=== PATIENT | female | born 1990 | race Caucasian/White ===

== ENCOUNTER 2019-07-19 20:54 | Emergency (ER) | payer SELFPAY ==
[~2019-07-19] VITALS: Ht 162.6 cm; Wt 104.3 kg
[2019-07-19 21:08] VITALS: BP 153/99
--- NOTE | 2019-07-19 22:19 | PHYS DOC ---
Past Medical History Past Medical History: Hypertension Past Surgical History: Other Additional Past Surgical Histo: cervical ca,tonsils Alcohol Use: None Drug Use: Marijuana, Methamphetamine Adult General Chief Complaint Chief Complaint: INSECT BITE HPI HPI Patient is a 29 year old female who presents with 2 abscesses to her left buttocks. There was one to the medial but THAT is very large and the size of the whole buttock. There is a scabbed over wound to the medial buttock with associated cellulitis. Review of Systems Review of Systems Integument: Two abscesses to left buttock. Denies rash or skin lesions [] All other systems were reviewed and found to be within normal limits, except as documented in this note. Allergies Allergies Allergies Coded Allergies Type Severity Reaction Last Updated Verified morphine Allergy Unknown "made me freak out" 07/19/19 Yes Physical Exam Physical Exam Constitutional: Well developed, well nourished, no acute distress, non-toxic appearance. [] Skin: 2 abscesses to Left buttock. Warm, dry, Left buttock erythema, no rash. [] Neurologic: Alert and oriented X 3, normal motor function, normal sensory function, no focal deficits noted. [] Psychologic: Affect normal, judgement normal, mood normal. [] Current Patient Data Vital Signs Vital Signs Date Time Temp Pulse Resp B/P (MAP) Pulse Ox O2 Delivery O2 Flow Rate FiO2 07/19/19 21:08 97.9 99 20 153/99 (117) 100 Room Air 97.9 EKG EKG [] Radiology/Procedures Radiology/Procedures [] Course & Med Decision Making Course & Med Decision Making There was one to the medial but that is very large and the size of the whole buttock. There is a scabbed over wound to the medial buttock with associated c ellulitis. The center is nonfluctuant. The second abscess is to the lateral buttock just below the hip that is baseball sized with associated cellulitis. The care of the wound has a scabbed over opening with no drainage at this time. The center is not fluctuant area. The skin is hot. She states that she thinks she was bitten by insect. She is told that she needs to stay for IV antibiotics and blood work. Patient is refusing and states that she is adult and can make her own decision. Patient is educated that she can become very ill including a infection and to the blood. Patient states she understands this but she is not staying to be admitted and that she is going to leave. Patient agrees to sign out AMA. Viviana Disclaimer Viviana Disclaimer This electronic medical record was generated, in whole or in part, using a voice recognition dictation system. Departure Departure Impression: Primary Impression: Abscess Disposition: 07 AGAINST MEDICAL ADVICE Condition: STABLE Referrals: NO PCP (PCP) CAIO MILLAN APRN Jul 19, 2019 22:19
== END 2019-07-19 22:30 | disposition left against medical advice (07) ==
LOC: ER 20:54
DX: L02.31 Cutaneous abscess of buttock (principal); L03.317 Cellulitis of buttock; I10 Essential (primary) hypertension; Z88.5 Allergy status to narcotic agent
CPT/HCPCS: 99281

== ENCOUNTER 2019-07-20 00:06 | Inpatient (IN) | payer SELFPAY ==
[~2019-07-20] VITALS: Ht 165.1 cm; Wt 96.2 kg
[2019-07-20] VITALS (7 sets, daily range): BP systolic 116–175; BP diastolic 60–106
[2019-07-20] MEDS ORDERED: IV NORMAL SALINE 1000ML BAG 1,000 ML IV ONE (00:30)
--- NOTE | 2019-07-20 00:34 | PHYS DOC ---
Past Medical History Past Medical History: Hypertension Past Surgical History: Other Additional Past Surgical Histo: cervical ca,tonsils Alcohol Use: None Drug Use: Marijuana, Methamphetamine Adult General Chief Complaint Chief Complaint: ABSCESS HPI HPI Patient is a 29 year old female who presents with 2 abscesses to Left buttock x 2 days. Review of Systems Review of Systems Integument: Abscess to Left buttock. Denies rash or skin lesions [] All other systems were reviewed and found to be within normal limits, except as documented in this note. Current Medications Current Medications Current Medications Medications (Trade) Dose Ordered Sig/Debbie Start Time Stop Time Status Last Admin Dose Admin Fentanyl Citrate (Fentanyl 2ml Vial) 50 mcg 1X ONCE 07/20/19 00:45 07/20/19 00:46 DC 07/20/19 00:53 50 MCG Sodium Chloride 1,000 ml @ 1,000 mls/hr 1X ONCE 07/20/19 00:30 07/20/19 01:29 07/20/19 00:51 1,000 MLS/HR Vancomycin HCl (Vanco Per Pharmacy) 1 each PRN DAILY PRN 07/20/19 00:30 UNV Vancomycin HCl 2 gm/Sodium Chloride 500 ml @ 250 mls/hr 1X ONCE 07/20/19 01:00 07/20/19 02:59 Allergies Allergies Allergies Coded Allergies Type Severity Reaction Last Updated Verified morphine Allergy Unknown "made me freak out" 07/19/19 Yes Physical Exam Physical Exam Constitutional: Well developed, well nourished, no acute distress, non-toxic appearance. [] Skin: 2 abscesses to Left buttock. Warm, dry, no erythema, no rash. [] Neurologic: Alert and oriented X 3, normal motor function, normal sensory function, no focal deficits noted. [] Psychologic: Affect normal, judgement normal, mood normal. [] Current Patient Data Vital Signs Vital Signs Date Time Temp Pulse Resp B/P (MAP) Pulse Ox O2 Delivery O2 Flow Rate FiO2 07/20/19 00:53 18 99 07/20/19 00:15 97.6 109 172/124 (140) Room Air 97.6 Lab Values Laboratory Tests Test 07/20/19 00:30 White Blood Count 13.2 x10^3/uL (4.0-11.0) H Red Blood Count 4.64 x10^6/uL (3.50-5.40) Hemoglobin 14.1 g/dL (12.0-15.5) Hematocrit 41.8 % (36.0-47.0) Mean Corpuscular Volume 90 fL (79-100) Mean Corpuscular Hemoglobin 31 pg (25-35) Mean Corpuscular Hemoglobin Concent 34 g/dL (31-37) Red Cell Distribution Width 12.8 % (11.5-14.5) Platelet Count 247 x10^3/uL (140-400) Neutrophils (%) (Auto) 73 % (31-73) Lymphocytes (%) (Auto) 18 % (24-48) L Monocytes (%) (Auto) 7 % (0-9) Eosinophils (%) (Auto) 1 % (0-3) Basophils (%) (Auto) 0 % (0-3) Neutrophils # (Auto) 9.7 x10^3/uL (1.8-7.7) H Lymphocytes # (Auto) 2.4 x10^3/uL (1.0-4.8) Monocytes # (Auto) 0.9 x10^3/uL (0.0-1.1) Eosinophils # (Auto) 0.2 x10^3/uL (0.0-0.7) Basophils # (Auto) 0.0 x10^3/uL (0.0-0.2) Laboratory Tests 07/20/19 00:30 EKG EKG [] Radiology/Procedures Radiology/Procedures [] Course & Med Decision Making Course & Med Decision Making There is one to the medial but that is very large and the size of the whole buttock. There is a scabbed over wound to the medial buttock with associated cellulitis. The center is nonfluctuant. The second abscess is to the lateral buttock just below the hip that is baseball sized with associated cellulitis. The care of the wound has a scabbed over opening with no drainage at this time. The center is not fluctuant area. The skin is hot. She states that she thinks she was bitten by insect. Patient admitted to Dr Sue. Viviana Disclaimer Viviana Disclaimer This electronic medical record was generated, in whole or in part, using a voice recognition dictation system. Departure Departure Impression: Primary Impression: Abscess Additional Impression: Cellulitis Disposition: ADMITTED INPATIENT Admitting Physician: BAYLEE Condition: STABLE Referrals: NO PCP (PCP) Problem Qualifiers Additional Impression: Cellulitis Site of cellulitis: buttock Qualified Codes: L03.317 - Cellulitis of bu [facility] CAIO MILLAN APRN Jul 20, 2019 00:34
[2019-07-20] MEDS ORDERED: fentaNYL PF VIAL 100 MCG/2 ML VIAL IVP ONE (00:45)
[2019-07-20 00:51] LABS: BASO % 0 % (0-3); EOS # 0.2 x10^3/uL (0.0-0.7); EOS % 1 % (0-3); HEMATOCRIT 41.8 % (36.0-47.0); HEMOGLOBIN 14.1 g/dL (12.0-15.5); LYMPH # 2.4 x10^3/uL (1.0-4.8); LYMPH % 18 % (24-48); MEAN CORPUSCULAR HEMOGLOBIN 31 pg (25-35); MEAN CORPUSCULAR HGB CONC 34 g/dL (31-37); MEAN CORPUSCULAR VOLUME 90 fL (79-100); MONO # 0.9 x10^3/uL (0.0-1.1); MONO % 7 % (0-9); NEUT # 9.7 x10^3/uL (1.8-7.7); NEUT % 73 % (31-73); PLATELET COUNT 247 x10^3/uL (140-400); RED BLOOD COUNT 4.64 x10^6/uL (3.50-5.40); RED CELL DISTRIBUTION WIDTH 12.8 % (11.5-14.5); WHITE BLOOD COUNT 13.2 x10^3/uL (4.0-11.0)
[2019-07-20] MEDS ORDERED: VANCOMYCIN 2 GM in IV NORMAL SALINE 500ML BAG 500 ML IV ONE (01:00)
[2019-07-20] MEDS ORDERED: ACETAMINOPHEN 325 MG TABLET. PO PRN (01:15)
[2019-07-20] MEDS ORDERED: ONDANSETRON PF 4 MG/2 ML VIAL. IV PRN (01:15)
[2019-07-20 01:44] LABS: CALCIUM 9.1 mg/dL (8.5-10.1); GFR 65.6; POTASSIUM 3.4 mmol/L (3.5-5.1)
[2019-07-20 01:50] LABS: ALBUMIN 3.4 g/dL (3.4-5.0); ALBUMIN/GLOBULIN RATIO 0.9 (1.0-1.7); TOTAL BILIRUBIN 0.5 mg/dL (0.2-1.0); TOTAL PROTEIN 7.2 g/dL (6.4-8.2)
[2019-07-20] MEDS: VANCOMYCIN PER PHARMACY MC PRN (02:35)
--- NOTE | 2019-07-20 02:39 | NUR ---
Pharmacy Vancomycin Dosing Note S:Consulted to monitor and dose vancomycin started 07/20/19. O:LATRELL HERNANDEZ is a 29 year old F with Abscess Cellulitis . Height: 5 feet, 5 inches Weight: 104.262800 kg [place] Body Weight: 57.00 Adjusted Body Weight: 75.80 Dosing Weight: Actual Other Antibiotics: LABS: Last BUN: 10 Last Creatinine: 1.0 Creatinine Clearance: 99 mL/min Last WBC: 13.2 Last Procalcitonin: Tmax (past 24 hours): Microbiology: I/O: Drug Levels: Last level: on at Last dose given at Vancomycin Dosing: Loading Dose: 2000 mg x1 07/20/19 0112 Dosing Weight: Actual Target Trough: 10-20 A: Based on: Actual Wt and CrCl P: 1. 07/20/19 1330 Vancomycin 1500 mg IV q12h 2. Follow up Trough level on 07/21/19 at 1300 3. Pharmacy will continue to monitor, follow and adjust therapy as needed. AFSHIN SALMON RPH, 07/20/19 0239 Signed: 07/20/19 at 0240 by AFSHIN SALMON RPH PHA
[2019-07-20] MEDS: fentaNYL PF VIAL 100 MCG/2 ML VIAL IV PRN ×6 (02:45→22:33)
--- NOTE | 2019-07-20 04:05 | NUR ---
Pt arrived to unit at 0205 per wheel chair assessment completed vs obtained and bp elevated. Poc explained. Pt significant other at bedside will resume care. Call placed to Dr reece re positive sepsis screen and elevated bp. will resume care and continue to monitor pt.
[2019-07-20] MEDS ORDERED: hydrOXYzine 25 MG TABLET PO PRN (04:15)
[2019-07-20] MEDS: ATENOLOL 25 MG TABLET. PO SCH ×2 (07:58→21:00)
[2019-07-20] MEDS ORDERED: IOHEXOL 300 MG/ML 100ML VIAL. IV ONE (08:15)
[2019-07-20] MEDS ORDERED: CONTRAST GIVEN. MC PRN (08:15)
[2019-07-20 08:27] LABS: BARBITURATES NEG (NEG); BENZODIAZEPINES NEG (NEG); CANNABINOIDS POS (NEG); COCAINE NEG (NEG); METHADONE NEG (NEG); OPIATES NEG (NEG); PHENCYCLIDINE NEG (NEG)
[2019-07-20 08:29] LABS: AMPHETAMINE/METHAMPHETAMINE POS (NEG)
--- NOTE | 2019-07-20 09:14 | PDOC ---
Provider Note Provider Note [id number] Pt seen and examined ID consult dictated Thank you WILFREDO SUAREZ MD Jul 20, 2019 09:14
[2019-07-20 09:20] LABS: U PREG PATIENT NEGATIVE (NEG)
--- NOTE | 2019-07-20 09:39 | CONS ---
DATE OF CONSULTATION: REFERRING PHYSICIAN: Dr. Sue. REASON FOR CONSULTATION: Left buttock cellulitis/abscess. HISTORY OF PRESENT ILLNESS: A 29-year-old female presented to the ER on 07/19/2019 with abscess over the left buttock, which came couple of days prior to admission. The patient has history of drug use. She denies any fevers. White count was around 13.2, T-max was 99.2. She received a dose of vancomycin. A urine test is pending. The patient denies any history of skin and soft tissue infections in the past. She has history of polysubstance use. UDS was positive for amphetamine, cannabinoids. The patient quit using drugs just a couple of days ago. CT of the pelvis is pending at this time. ID consult has been requested for antibiotic management. This morning, she continues to have pain, swelling, redness at the site on the buttock. REVIEW OF SYSTEMS: Negative except for above. CURRENT MEDICATION: IV vancomycin, fentanyl. ALLERGIES: MORPHINE. SOCIAL HISTORY: Positive for smoking, ETOH, and drug use. Partner at bedside. PHYSICAL EXAMINATION: VITAL SIGNS: Temperature 97.6, pulse 109, respiratory rate 18, blood pressure 172/124, oxygen saturation 99% on room air. GENERAL: Alert, oriented, well-nourished, well-developed female, nontoxic appearing, in no acute distress. HEENT: Nonicteric. No oral lesions. NECK: Supple. LUNGS: Clear bilaterally. HEART: S1, S2. ABDOMEN: Soft, obese. Bowel sounds present, nontender, nondistended. EXTREMITIES: Left buttock cellulitis, 2 lesions with one near the anal area, early developing abscess, tender, has multiple excoriation all over the lower extremity. MUSCULOSKELETAL: No joint effusion, no decrease in range of motion. DERMATOLOGIC: Warm and dry. Multiple superficial abrasions all over the face, upper extremity and lower extremity and as above. NEUROLOGIC: Alert and oriented x 3, grossly nonfocal. PSYCHIATRIC: Cooperative, appropriate mood and affect. LABORATORY DATA: WBC 13.0, hemoglobin 14.1, hematocrit 41.8, platelets 247. UDS is positive for methamphetamine, amphetamine and cannabinoids. Sodium 142, potassium 3.4, chloride 107, bicarbonate 26, BUN 10, creatinine 1.0, glucose 116. Lactate 0.8, calcium 9.1, total bilirubin 0.5, ALT 83, AST 30, alkaline phosphatase 84, albumin 3.4. IMAGING: None at this time. CT pelvis is pending at this time. IMPRESSION: 1. Left buttock abscess with cellulitis. 2. History of polysubstance use. 3. Leukocytosis. RECOMMENDATIONS: 1. Continue IV vancomycin. 2. Monitor renal functions closely. 3. Consult General Surgery for possible I and D. 4. Follow up blood cultures. 5. Follow up urine test. 6. Follow up CT pelvis. 7. Continue local care. 8. Follow up labs and cultures. 9. Continue supportive care. 10. We will obtain HIV, hepatitis profile and RPR for completeness sake, patient gave verbal consent. 11. Discussed with RN. Thank you, Dr. Sue for consulting Infectious Disease to participate in this patient's care. We will follow along with you. WILFREDO SUAREZ MD DR: KIMMIE/nts JOB#: [id number] / [id number]
--- NOTE | 2019-07-20 10:05 | PDOC1 ---
History and Physical Date of Admission Date of Admission DATE: 07/20/19 TIME: 10:01 Source Source: Chart review, Patient History of Present Illness History of Present Illness Ms. Dean, is a 29-year-old female admit after days of buttock pain, she has now acute pain to her left buttock. she has recent meth and THC use low grade fever 99, w /leukocytosis, pain she is sleeping hard 10am, probably normal for her schedule and sobering up still Past Medical History Cardiovascular: No pertinent hx Pulmonary: No pertinent hx GI: No pertinent hx Musculoskeletal: low back pain Social History ALCOHOL: rare Drugs: Marijuana, Crystal meth Current Problem List Problem List Problems Medical Problems: (1) Abscess Status: Acute (2) Cellulitis Status: Acute Current Medications Current Medications Current Medications Sodium Chloride 1,000 ml @ 1,000 mls/hr 1X ONCE IV Last administered on 07/20/19at 00:51; Start 07/20/19 at 00:30; Stop 07/20/19 at 01:29; Status DC Fentanyl Citrate (Fentanyl 2ml Vial) 50 mcg 1X ONCE IVP Last administered on 07/20/19at 00:53; Start 07/20/19 at 00:45; Stop 07/20/19 at 00:46; Status DC Vancomycin HCl (Vanco Per Pharmacy) 1 each PRN DAILY PRN MC SEE COMMENTS Last administered on 07/20/19at 02:35; Start 07/20/19 at 00:30 Vancomycin HCl 2 gm/Sodium Chloride 500 ml @ 250 mls/hr 1X ONCE IV Last administered on 07/20/19at 01:12; Start 07/20/19 at 01:00; Stop 07/20/19 at 02:59; Status DC Ondansetron HCl (Zofran) 4 mg PRN Q8HRS PRN IV NAUSEA/VOMITING Last administered on 07/20/19at 02:44; Start 07/20/19 at 01:15; Stop 07/21/19 at 01:14 Fentanyl Citrate (Fentanyl 2ml Vial) 50 mcg PRN Q1HR PRN IV PAIN Last administered on 07/20/19at 07:58; Start 07/20/19 at 01:15; Stop 07/21/19 at 01:14 Acetaminophen (Tylenol) 650 mg PRN Q4HRS PRN PO FEVER; Start 07/20/19 at 01:15; Stop 07/21/19 at 01:14 Vancomycin HCl 1.5 gm/Sodium Chloride 500 ml @ 250 mls/hr Q12H IV ; Start 07/20/19 at 13:30 Vancomycin HCl (Vancomycin Trough Level) 1 each 1X ONCE MC ; Start 07/21/19 at 13:00; Stop 07/21/19 at 13:01 Atenolol (Tenormin) 25 mg BID PO Last administered on 07/20/19at 07:58; Start 07/20/19 at 09:00 Hydroxyzine HCl (Atarax) 25 mg PRN Q6HRS PRN PO ITCHING Last administered on 07/20/19at 04:26; Start 07/20/19 at 04:15 Iohexol (Omnipaque 300 Mg/ml) 75 ml 1X ONCE IV ; Start 07/20/19 at 08:15; Stop 07/20/19 at 08:16; Status DC Info (CONTRAST GIVEN -- Rx MONITORING) 1 each PRN DAILY PRN MC SEE COMMENTS; Start 07/20/19 at 08:15; Stop 07/22/19 at 08:14 Lactobacillus Rhamnosus (Culturelle) 1 cap BID PO ; Start 07/20/19 at 21:00 Active Scripts Active Reported No Known Medications Prior To Admisstion (Info) Each 1 Each MC Allergies Allergies: Coded Allergies: morphine (Verified Adverse Reaction, Unknown, "made me freak out", 07/20/19) ROS General: YES: Fatigue, Malaise; No: Chills, Night Sweats, Appetite, Other Eyes: No Blurry vision, No Decreased vision, No Double vision, No Dry eyes, No Excessive tearing, No Eye Pain, No Itchy Eyes, No Loss of vision, No Photophobia, No Scotomata, No Uses contacts, No Uses glasses, No Other Gastrointestinal: Yes Nausea Musculoskeletal: Yes Joint Stiffness Neurological: Yes Gait Disturbance Skin: Yes Dry Skin, Yes Rash, Yes Skin Lesion Changes Physical Exam General: Alert, Oriented X3, mild distress HEENT: Atraumatic, Mucous membr. moist/pink Lungs: Clear to auscultation, Normal air movement Heart: S1S2, no gallops Extremities: No cyanosis, No edema Neuro: Sensation intact, Cranial nerves 3-12 NL Psych/Mental Status: Mood NL Vitals Vitals Vital Signs Date Time Temp Pulse Resp B/P (MAP) Pulse Ox O2 Delivery O2 Flow Rate FiO2 07/20/19 07:58 107 117/60 07/20/19 07:58 Room Air 07/20/19 07:00 99.5 21 96 99.5 Labs Labs Laboratory Tests Test 07/20/19 00:30 07/20/19 08:05 White Blood Count 13.2 x10^3/uL (4.0-11.0) Red Blood Count 4.64 x10^6/uL (3.50-5.40) Hemoglobin 14.1 g/dL (12.0-15.5) Hematocrit 41.8 % (36.0-47.0) Mean Corpuscular Volume 90 fL (79-100) Mean Corpuscular Hemoglobin 31 pg (25-35) Mean Corpuscular Hemoglobin Concent 34 g/dL (31-37) Red Cell Distribution Width 12.8 % (11.5-14.5) Platelet Count 247 x10^3/uL (140-400) Neutrophils (%) (Auto) 73 % (31-73) Lymphocytes (%) (Auto) 18 % (24-48) Monocytes (%) (Auto) 7 % (0-9) Eosinophils (%) (Auto) 1 % (0-3) Basophils (%) (Auto) 0 % (0-3) Neutrophils # (Auto) 9.7 x10^3/uL (1.8-7.7) Lymphocytes # (Auto) 2.4 x10^3/uL (1.0-4.8) Monocytes # (Auto) 0.9 x10^3/uL (0.0-1.1) Eosinophils # (Auto) 0.2 x10^3/uL (0.0-0.7) Basophils # (Auto) 0.0 x10^3/uL (0.0-0.2) Sodium Level 142 mmol/L (136-145) Potassium Level 3.4 mmol/L (3.5-5.1) Chloride Level 107 mmol/L (98-107) Carbon Dioxide Level 26 mmol/L (21-32) Anion Gap 9 (6-14) Blood Urea Nitrogen 10 mg/dL (7-20) Creatinine 1.0 mg/dL (0.6-1.0) Estimated GFR (Cockcroft-Gault) 65.6 BUN/Creatinine Ratio 10 (6-20) Glucose Level 116 mg/dL (70-99) Lactic Acid Level 0.8 mmol/L (0.4-2.0) Calcium Level 9.1 mg/dL (8.5-10.1) Total Bilirubin 0.5 mg/dL (0.2-1.0) Aspartate Amino Transf (AST/SGOT) 30 U/L (15-37) Alanine Aminotransferase (ALT/SGPT) 83 U/L (14-59) Alkaline Phosphatase 84 U/L (46-116) Total Protein 7.2 g/dL (6.4-8.2) Albumin 3.4 g/dL (3.4-5.0) Albumin/Globulin Ratio 0.9 (1.0-1.7) Urine Test Negative (NEG) Urine Opiates Screen Neg (NEG) Urine Methadone Screen Neg (NEG) Urine Barbiturates Neg (NEG) Urine Phencyclidine Screen Neg (NEG) Urine Amphetamine/Methamphetamine Pos (NEG) Urine Benzodiazepines Screen Neg (NEG) Urine Cocaine Screen Neg (NEG) Urine Cannabinoids Screen Pos (NEG) Urine Ethyl Alcohol Neg (NEG) Laboratory Tests Test 07/20/19 00:30 07/20/19 08:05 White Blood Count 13.2 x10^3/uL (4.0-11.0) Red Blood Count 4.64 x10^6/uL (3.50-5.40) Hemoglobin 14.1 g/dL (12.0-15.5) Hematocrit 41.8 % (36.0-47.0) Mean Corpuscular Volume 90 fL (79-100) Mean Corpuscular Hemoglobin 31 pg (25-35) Mean Corpuscular Hemoglobin Concent 34 g/dL (31-37) Red Cell Distribution Width 12.8 % (11.5-14.5) Platelet Count 247 x10^3/uL (140-400) Neutrophils (%) (Auto) 73 % (31-73) Lymphocytes (%) (Auto) 18 % (24-48) Monocytes (%) (Auto) 7 % (0-9) Eosinophils (%) (Auto) 1 % (0-3) Basophils (%) (Auto) 0 % (0-3) Neutrophils # (Auto) 9.7 x10^3/uL (1.8-7.7) Lymphocytes # (Auto) 2.4 x10^3/uL (1.0-4.8) Monocytes # (Auto) 0.9 x10^3/uL (0.0-1.1) Eosinophils # (Auto) 0.2 x10^3/uL (0.0-0.7) Basophils # (Auto) 0.0 x10^3/uL (0.0-0.2) Sodium Level 142 mmol/L (136-145) Potassium Level 3.4 mmol/L (3.5-5.1) Chloride Level 107 mmol/L (98-107) Carbon Dioxide Level 26 mmol/L (21-32) Anion Gap 9 (6-14) Blood Urea Nitrogen 10 mg/dL (7-20) Creatinine 1.0 mg/dL (0.6-1.0) Estimated GFR (Cockcroft-Gault) 65.6 BUN/Creatinine Ratio 10 (6-20) Glucose Level 116 mg/dL (70-99) Lactic Acid Level 0.8 mmol/L (0.4-2.0) Calcium Level 9.1 mg/dL (8.5-10.1) Total Bilirubin 0.5 mg/dL (0.2-1.0) Aspartate Amino Transf (AST/SGOT) 30 U/L (15-37) Alanine Aminotransferase (ALT/SGPT) 83 U/L (14-59) Alkaline Phosphatase 84 U/L (46-116) Total Protein 7.2 g/dL (6.4-8.2) Albumin 3.4 g/dL (3.4-5.0) Albumin/Globulin Ratio 0.9 (1.0-1.7) Urine Test Negative (NEG) Urine Opiates Screen Neg (NEG) Urine Methadone Screen Neg (NEG) Urine Barbiturates Neg (NEG) Urine Phencyclidine Screen Neg (NEG) Urine Amphetamine/Methamphetamine Pos (NEG) Urine Benzodiazepines Screen Neg (NEG) Urine Cocaine Screen Neg (NEG) Urine Cannabinoids Screen Pos (NEG) Urine Ethyl Alcohol Neg (NEG) VTE Prophylaxis Ordered VTE Prophylaxis Devices: Yes VTE Pharmacological Prophylaxi: No (may need I+D) Assessment/Plan Assessment/Plan cellulitis buttock wound with cellulits possible abcess, check CT scan, if fluid seen, will consult gen surg substance abuse, BMI 41, obese MAURY GLEASON MD Jul 20, 2019 10:05
--- NOTE | 2019-07-20 10:52 | RAD ---
CT pelvis with contrast HISTORY: Abscess to buttocks Axial helical images of pelvis were obtained after the administration of 75 cc of IV Omni 300 contrast. FINDINGS: There is hyperattenuation within the subcutaneous fat of the left buttocks. There is no air or fluid accumulation. There is no free fluid in the pelvis. The uterus and ovaries appear within normal limits. The appendix is normal. IMPRESSION: Edema within the subcutaneous fat over the left buttocks. Cellulitis is possible. No abscess. Electronically signed by: Jack Novoa III, MD (07/20/2019 10:49 AM) [facility]
[2019-07-20] MEDS ORDERED: POTASSIUM CHLORIDE 20 MEQ TABLET.ER. PO ONE (12:45)
[2019-07-20] MEDS: KETOROLAC 15 MG/ML VIAL. IVP PRN (12:51)
[2019-07-20] MEDS: oxyCODONE/APAP 5/325 1 TAB TABLET PO PRN ×2 (12:51→21:00)
[2019-07-20] MEDS: VANCOMYCIN 1.5 GM in IV NORMAL SALINE 500ML BAG 500 ML IV SCH ×2 (16:30→17:04)
[2019-07-20] MEDS: LACTOBACILLUS RHAMNOSUS GG 1 CAPSULE. PO SCH (21:00)
[2019-07-21] MEDS: oxyCODONE/APAP 5/325 1 TAB TABLET PO PRN ×5 (02:44→22:25)
[2019-07-21 03:01] VITALS: BP 109/65
[2019-07-21 07:00] VITALS: BP 113/73
[2019-07-21] MEDS ORDERED: ONDANSETRON PF 4 MG/2 ML VIAL. IVP PRN (08:15)
[2019-07-21] MEDS: LACTOBACILLUS RHAMNOSUS GG 1 CAPSULE. PO SCH ×2 (09:11→21:10)
[2019-07-21] MEDS: ATENOLOL 25 MG TABLET. PO SCH ×2 (09:11→21:13)
[2019-07-21] MEDS: KETOROLAC 15 MG/ML VIAL. IVP PRN ×2 (09:54→16:00)
--- NOTE | 2019-07-21 09:57 | PDOC ---
PROGRESS NOTES Chief Complaint Chief Complaint LEft gluteal abscess with cellulitis NON DM RECreational drug use but denies IVDU Obesity BMI 35.7 History of Present Illness History of Present Illness There is abscess to that LEFT butt cheek K 3,4 WBC 15, no fevers, on vanc with ID on board pelvic ct: IMPRESSION: Edema within the subcutaneous fat over the left buttocks. Cellulitis is possible. No abscess. PLANL: SHe needs a surgical consult Replace K Check labs Intra op/I and d cxs when that happens Vitals Vitals Vital Signs Date Time Temp Pulse Resp B/P (MAP) Pulse Ox O2 Delivery O2 Flow Rate FiO2 07/21/19 09:11 83 113/73 07/21/19 09:06 95 Room Air 07/21/19 07:00 98.3 18 98.3 Physical Exam General: Alert, Oriented X3, No acute distress Heart: Regular rate, Normal S1, Normal S2, No murmurs Lungs: Clear Abdomen: Soft, No tenderness Extremities: No clubbing, No cyanosis, No edema Skin: Other (LEft buttock cheek abscess with cellulitis surrounding) Review of Systems Review of Systems left buttock cheek pain, all else 14 pt neg Assessment and Plan Assessmemt and Plan Problems Medical Problems: (1) Abscess Status: Acute (2) Cellulitis Status: Acute Comment Review of Relevant I have reviewed the following items franci (where applicable) has been applied. Labs Laboratory Tests Test 07/20/19 00:30 07/20/19 08:05 White Blood Count 13.2 x10^3/uL (4.0-11.0) Red Blood Count 4.64 x10^6/uL (3.50-5.40) Hemoglobin 14.1 g/dL (12.0-15.5) Hematocrit 41.8 % (36.0-47.0) Mean Corpuscular Volume 90 fL (79-100) Mean Corpuscular Hemoglobin 31 pg (25-35) Mean Corpuscular Hemoglobin Concent 34 g/dL (31-37) Red Cell Distribution Width 12.8 % (11.5-14.5) Platelet Count 247 x10^3/uL (140-400) Neutrophils (%) (Auto) 73 % (31-73) Lymphocytes (%) (Auto) 18 % (24-48) Monocytes (%) (Auto) 7 % (0-9) Eosinophils (%) (Auto) 1 % (0-3) Basophils (%) (Auto) 0 % (0-3) Neutrophils # (Auto) 9.7 x10^3/uL (1.8-7.7) Lymphocytes # (Auto) 2.4 x10^3/uL (1.0-4.8) Monocytes # (Auto) 0.9 x10^3/uL (0.0-1.1) Eosinophils # (Auto) 0.2 x10^3/uL (0.0-0.7) Basophils # (Auto) 0.0 x10^3/uL (0.0-0.2) Sodium Level 142 mmol/L (136-145) Potassium Level 3.4 mmol/L (3.5-5.1) Chloride Level 107 mmol/L (98-107) Carbon Dioxide Level 26 mmol/L (21-32) Anion Gap 9 (6-14) Blood Urea Nitrogen 10 mg/dL (7-20) Creatinine 1.0 mg/dL (0.6-1.0) Estimated GFR (Cockcroft-Gault) 65.6 BUN/Creatinine Ratio 10 (6-20) Glucose Level 116 mg/dL (70-99) Lactic Acid Level 0.8 mmol/L (0.4-2.0) Calcium Level 9.1 mg/dL (8.5-10.1) Total Bilirubin 0.5 mg/dL (0.2-1.0) Aspartate Amino Transf (AST/SGOT) 30 U/L (15-37) Alanine Aminotransferase (ALT/SGPT) 83 U/L (14-59) Alkaline Phosphatase 84 U/L (46-116) Total Protein 7.2 g/dL (6.4-8.2) Albumin 3.4 g/dL (3.4-5.0) Albumin/Globulin Ratio 0.9 (1.0-1.7) Urine Test Negative (NEG) Urine Opiates Screen Neg (NEG) Urine Methadone Screen Neg (NEG) Urine Barbiturates Neg (NEG) Urine Phencyclidine Screen Neg (NEG) Urine Amphetamine/Methamphetamine Pos (NEG) Urine Benzodiazepines Screen Neg (NEG) Urine Cocaine Screen Neg (NEG) Urine Cannabinoids Screen Pos (NEG) Urine Ethyl Alcohol Neg (NEG) Microbiology 07/20/19 Blood Culture - Preliminary, Resulted NO GROWTH AFTER 1 DAY Medications Current Medications Sodium Chloride 1,000 ml @ 1,000 mls/hr 1X ONCE IV Last administered on 07/20/19at 00:51; Start 07/20/19 at 00:30; Stop 07/20/19 at 01:29; Status DC Fentanyl Citrate (Fentanyl 2ml Vial) 50 mcg 1X ONCE IVP Last administered on 07/20/19at 00:53; Start 07/20/19 at 00:45; Stop 07/20/19 at 00:46; Status DC Vancomycin HCl (Vanco Per Pharmacy) 1 each PRN DAILY PRN MC SEE COMMENTS Last administered on 07/20/19at 02:35; Start 07/20/19 at 00:30 Vancomycin HCl 2 gm/Sodium Chloride 500 ml @ 250 mls/hr 1X ONCE IV Last administered on 07/20/19at 01:12; Start 07/20/19 at 01:00; Stop 07/20/19 at 02:59; Status DC Ondansetron HCl (Zofran) 4 mg PRN Q8HRS PRN IV NAUSEA/VOMITING Last administered on 07/20/19at 02:44; Start 07/20/19 at 01:15; Stop 07/21/19 at 01:14; Status DC Fentanyl Citrate (Fentanyl 2ml Vial) 50 mcg PRN Q1HR PRN IV PAIN Last administered on 07/20/19at 22:33; Start 07/20/19 at 01:15; Stop 07/21/19 at 01:14; Status DC Acetaminophen (Tylenol) 650 mg PRN Q4HRS PRN PO FEVER; Start 07/20/19 at 01:15; Stop 07/21/19 at 01:14; Status DC Vancomycin HCl 1.5 gm/Sodium Chloride 500 ml @ 250 mls/hr Q12H IV Last administered on 07/20/19at 17:04; Start 07/20/19 at 13:30 Vancomycin HCl (Vancomycin Trough Level) 1 each 1X ONCE MC ; Start 07/21/19 at 13:00; Stop 07/21/19 at 13:01 Atenolol (Tenormin) 25 mg BID PO Last administered on 07/21/19at 09:11; Start 07/20/19 at 09:00 Hydroxyzine HCl (Atarax) 25 mg PRN Q6HRS PRN PO ITCHING Last administered on 07/20/19at 04:26; Start 07/20/19 at 04:15 Iohexol (Omnipaque 300 Mg/ml) 75 ml 1X ONCE IV Last administered on 07/20/19at 08:15; Start 07/20/19 at 08:15; Stop 07/20/19 at 08:16; Status DC Info (CONTRAST GIVEN -- Rx MONITORING) 1 each PRN DAILY PRN MC SEE COMMENTS; Start 07/20/19 at 08:15; Stop 07/22/19 at 08:14 Lactobacillus Rhamnosus (Culturelle) 1 cap BID PO Last administered on 07/21/19at 09:11; Start 07/20/19 at 21:00 Oxycodone/ Acetaminophen (Percocet 5/325) 1 tab PRN Q4HRS PRN PO PAIN Last administered on 07/21/19at 07:34; Start 07/20/19 at 12:45 Ketorolac Tromethamine (Toradol 15mg Vial) 15 mg PRN Q6HRS PRN IVP PAIN MILD Last administered on 07/20/19at 12:51; Start 07/20/19 at 12:45; Stop 07/25/19 at 12:44 Potassium Chloride (Klor-Con) 40 meq 1X ONCE PO Last administered on 07/20/19at 12:51; Start 07/20/19 at 12:45; Stop 07/20/19 at 12:46; Status DC Ondansetron HCl (Zofran) 4 mg PRN Q6HRS PRN IVP NAUSEA/VOMITING; Start 07/21/19 at 08:15 Active Scripts Active Reported No Known Medications Prior To Admisstion (Info) Each 1 Each Vitals/I & O Vital Sign - Last 24 Hours 07/20/19 07/20/19 07/20/19 07/20/19 10:20 11:00 12:51 14:52 Temp 97.9 98.2 97.9 98.2 Pulse 84 83 Resp 21 14 B/P (MAP) 133/72 (92) 118/70 (86) Pulse Ox 95 96 O2 Delivery Room Air Room Air Room Air Room Air 07/20/19 07/20/19 07/20/19 07/20/19 16:29 16:59 19:00 20:00 Temp 98.1 98.1 Pulse 86 Resp 14 14 20 B/P (MAP) 118/68 (85) Pulse Ox 96 96 O2 Delivery Room Air Room Air Room Air Room Air 07/20/19 07/20/19 07/20/19 07/20/19 20:34 21:00 21:00 21:04 Pulse 86 B/P (MAP) 118/68 Pulse Ox 96 96 96 O2 Delivery Room Air Room Air Room Air 07/20/19 07/20/19 07/20/19 07/20/19 22:00 22:33 23:01 23:03 Temp 98.3 98.3 Pulse 89 Resp 20 B/P (MAP) 116/82 (93) Pulse Ox 96 96 95 95 O2 Delivery Room Air Room Air Room Air Room Air 07/21/19 07/21/19 07/21/19 07/21/19 02:44 03:01 03:44 07:00 Temp 97.5 98.3 97.5 98.3 Pulse 73 83 Resp 20 18 B/P (MAP) 109/65 (80) 113/73 (86) Pulse Ox 95 95 95 94 O2 Delivery Room Air Room Air Room Air Room Air 07/21/19 07/21/19 07/21/19 07/21/19 07:34 07:50 09:06 09:11 Pulse 83 B/P (MAP) 113/73 Pulse Ox 95 95 O2 Delivery Room Air Room Air Room Air Intake and Output 07/20/19 07/20/19 07/21/19 15:00 23:00 07:00 Intake Total 720 ml 280 ml Output Total 100 ml Balance 620 ml 280 ml NERI GARCIA MD Jul 21, 2019 09:57
--- NOTE | 2019-07-21 10:02 | PDOC ---
Infectious Disease Note Subjective: Subjective pt complains of pain and discomfort no f/c/n/v/d/sob ROS: ROS Negative otherwise. Vital Signs: Vital Signs Vital Signs Date Time Temp Pulse Resp B/P (MAP) Pulse Ox O2 Delivery O2 Flow Rate FiO2 07/21/19 09:11 83 113/73 07/21/19 09:06 95 Room Air 07/21/19 07:00 98.3 18 98.3 Physical Exam: PHYSICAL EXAM GENERAL: Alert, oriented, well-nourished, well-developed female, nontoxic appearing, in no acute distress. HEENT: Nonicteric. No oral lesions. NECK: Supple. LUNGS: Clear bilaterally. HEART: S1, S2. ABDOMEN: Soft, obese. Bowel sounds present, nontender, nondistended. EXTREMITIES: Left buttock redness, swelling, tenderness, 3 lesions with one possible early developing abscess, tender, has multiple excoriation all over the lower extremity. MUSCULOSKELETAL: No joint effusion, no decrease in range of motion. DERMATOLOGIC: Warm and dry. Multiple superficial abrasions all over the face, upper extremity and lower extremity and as above. NEUROLOGIC: Alert and oriented x 3, grossly nonfocal. PSYCHIATRIC: Cooperative, appropriate mood and affect. Medications: Inpatient Meds: Current Medications Medications (Trade) Dose Ordered Sig/Debbie Start Time Stop Time Status Last Admin Dose Admin Acetaminophen (Tylenol) 650 mg PRN Q4HRS PRN 07/20/19 01:15 07/21/19 01:14 DC Atenolol (Tenormin) 25 mg BID 07/20/19 09:00 07/21/19 09:11 25 MG Fentanyl Citrate (Fentanyl 2ml Vial) 50 mcg PRN Q1HR PRN 07/20/19 01:15 07/21/19 01:14 DC 07/20/19 22:33 50 MCG Hydroxyzine HCl (Atarax) 25 mg PRN Q6HRS PRN 07/20/19 04:15 07/20/19 04:26 25 MG Info (CONTRAST GIVEN -- Rx MONITORING) 1 each PRN DAILY PRN 07/20/19 08:15 07/22/19 08:14 Iohexol (Omnipaque 300 Mg/ml) 75 ml 1X ONCE 07/20/19 08:15 07/20/19 08:16 DC 07/20/19 08:15 75 ML Ketorolac Tromethamine (Toradol 15mg Vial) 15 mg PRN Q6HRS PRN 07/20/19 12:45 07/25/19 12:44 07/21/19 09:54 15 MG Lactobacillus Rhamnosus (Culturelle) 1 cap BID 07/20/19 21:00 07/21/19 09:11 1 CAP Ondansetron HCl (Zofran) 4 mg PRN Q6HRS PRN 07/21/19 08:15 Oxycodone/ Acetaminophen (Percocet 5/325) 1 tab PRN Q4HRS PRN 07/20/19 12:45 07/21/19 07:34 1 TAB Potassium Chloride (Klor-Con) 40 meq 1X ONCE 07/20/19 12:45 07/20/19 12:46 DC 07/20/19 12:51 40 MEQ Sodium Chloride 1,000 ml @ 1,000 mls/hr 1X ONCE 07/20/19 00:30 07/20/19 01:29 DC 07/20/19 00:51 1,000 MLS/HR Vancomycin HCl (Vanco Per Pharmacy) 1 each PRN DAILY PRN 07/20/19 00:30 07/20/19 02:35 1 EACH Vancomycin HCl (Vancomycin Trough Level) 1 each 1X ONCE 07/21/19 13:00 07/21/19 13:01 Vancomycin HCl 1.5 gm/Sodium Chloride 500 ml @ 250 mls/hr Q12H 07/20/19 13:30 07/20/19 17:04 250 MLS/HR Vancomycin HCl 2 gm/Sodium Chloride 500 ml @ 250 mls/hr 1X ONCE 07/20/19 01:00 07/20/19 02:59 DC 07/20/19 01:12 250 MLS/HR Labs: Micro reviewed Objective: Assessment: 1. Lt buttock lesions, one early deveoping Left buttock abscess with cellulitis. 2. History of polysubstance use.HIV, hepatitis profile and RPR neg 3. Leukocytosis. Plan: Plan of Care 1. Continue IV vancomycin. 2. Monitor renal functions closely. 3. Consult General Surgery for possible I and D. 4. Follow up blood cultures. 5. Continue local care. 6. Follow up labs and cultures. 7 Continue supportive care. Discussed with WILFREDO DAS MD Jul 21, 2019 10:02
[2019-07-21 10:03] LABS: BASO % 1 % (0-3); EOS # 0.4 x10^3/uL (0.0-0.7); EOS % 5 % (0-3); HEMATOCRIT 38.9 % (36.0-47.0); HEMOGLOBIN 13.2 g/dL (12.0-15.5); LYMPH % 36 % (24-48); MEAN CORPUSCULAR HEMOGLOBIN 31 pg (25-35); MEAN CORPUSCULAR HGB CONC 34 g/dL (31-37); MEAN CORPUSCULAR VOLUME 91 fL (79-100); MONO # 0.7 x10^3/uL (0.0-1.1); MONO % 9 % (0-9); NEUT % 49 % (31-73); PLATELET COUNT 235 x10^3/uL (140-400); RED BLOOD COUNT 4.29 x10^6/uL (3.50-5.40); RED CELL DISTRIBUTION WIDTH 12.8 % (11.5-14.5); WHITE BLOOD COUNT 8.2 x10^3/uL (4.0-11.0)
[2019-07-21 10:09] LABS: CALCIUM 8.1 mg/dL (8.5-10.1); CREATININE 0.9 mg/dL (0.6-1.0); POTASSIUM 3.9 mmol/L (3.5-5.1)
--- NOTE | 2019-07-21 10:38 | PDOC2 ---
SHAMEKAKRISTIN Adwoa [employer]PER[employer] 07/21/19 1038: CONSULT Date of Consult Date of Consult DATE: 07/21/19 TIME: 10:33 Reason for Consult Reason for Consult: cellullitis possible abscess Referring Physician Referring Physician: Dr De Oliveira Identification/Chief Complaint Chief Complaint buttock pain Source Source: Chart review, Patient History of Present Illness Reason for Visit: Several days of pain to buttock --had 3 areas of swelling, redness and pain. This progressively worsened. No significant drainage. No previous hx of skin infections. She was concerned for possible spider bites, denies any injury to area Past Medical History Cardiovascular: No pertinent hx Pulmonary: No pertinent hx GI: No pertinent hx Musculoskeletal: low back pain Past Surgical History Past Surgical History: No pertinent history Family History Family History: Other (noncontributory to current illness ) Social History 1 pack per day ALCOHOL: rare Drugs: Marijuana, Crystal meth Current Problem List Problem List Problems Medical Problems: (1) Abscess Status: Acute (2) Cellulitis Status: Acute Current Medications Current Medications Current Medications Sodium Chloride 1,000 ml @ 1,000 mls/hr 1X ONCE IV Last administered on 07/20/19at 00:51; Start 07/20/19 at 00:30; Stop 07/20/19 at 01:29; Status DC Fentanyl Citrate (Fentanyl 2ml Vial) 50 mcg 1X ONCE IVP Last administered on 07/20/19at 00:53; Start 07/20/19 at 00:45; Stop 07/20/19 at 00:46; Status DC Vancomycin HCl (Vanco Per Pharmacy) 1 each PRN DAILY PRN MC SEE COMMENTS Last administered on 07/20/19at 02:35; Start 07/20/19 at 00:30 Vancomycin HCl 2 gm/Sodium Chloride 500 ml @ 250 mls/hr 1X ONCE IV Last administered on 07/20/19at 01:12; Start 07/20/19 at 01:00; Stop 07/20/19 at 02:59; Status DC Ondansetron HCl (Zofran) 4 mg PRN Q8HRS PRN IV NAUSEA/VOMITING Last administered on 07/20/19at 02:44; Start 07/20/19 at 01:15; Stop 07/21/19 at 01 :14; Status DC Fentanyl Citrate (Fentanyl 2ml Vial) 50 mcg PRN Q1HR PRN IV PAIN Last administered on 07/20/19at 22:33; Start 07/20/19 at 01:15; Stop 07/21/19 at 01:14; Status DC Acetaminophen (Tylenol) 650 mg PRN Q4HRS PRN PO FEVER; Start 07/20/19 at 01:15; Stop 07/21/19 at 01:14; Status DC Vancomycin HCl 1.5 gm/Sodium Chloride 500 ml @ 250 mls/hr Q12H IV Last administered on 07/20/19at 17:04; Start 07/20/19 at 13:30 Vancomycin HCl (Vancomycin Trough Level) 1 each 1X ONCE MC ; Start 07/21/19 at 13:00; Stop 07/21/19 at 13:01 Atenolol (Tenormin) 25 mg BID PO Last administered on 07/21/19at 09:11; Start 07/20/19 at 09:00 Hydroxyzine HCl (Atarax) 25 mg PRN Q6HRS PRN PO ITCHING Last administered on 07/20/19at 04:26; Start 07/20/19 at 04:15 Iohexol (Omnipaque 300 Mg/ml) 75 ml 1X ONCE IV Last administered on 07/20/19at 08:15; Start 07/20/19 at 08:15; Stop 07/20/19 at 08:16; Status DC Info (CONTRAST GIVEN -- Rx MONITORING) 1 each PRN DAILY PRN MC SEE COMMENTS; Start 07/20/19 at 08:15; Stop 07/22/19 at 08:14 Lactobacillus Rhamnosus (Culturelle) 1 cap BID PO Last administered on 07/21/19at 09:11; Start 07/20/19 at 21:00 Oxycodone/ Acetaminophen (Percocet 5/325) 1 tab PRN Q4HRS PRN PO PAIN Last administered on 07/21/19at 07:34; Start 07/20/19 at 12:45 Ketorolac Tromethamine (Toradol 15mg Vial) 15 mg PRN Q6HRS PRN IVP PAIN MILD Last administered on 07/21/19at 09:54; Start 07/20/19 at 12:45; Stop 07/25/19 at 12:44 Potassium Chloride (Klor-Con) 40 meq 1X ONCE PO Last administered on at 12:51; Start 07/20/19 at 12:45; Stop 07/20/19 at 12:46; Status DC Ondansetron HCl (Zofran) 4 mg PRN Q6HRS PRN IVP NAUSEA/VOMITING; Start 07/21/19 at 08:15 Active Scripts Active Reported No Known Medications Prior To Admisstion (Info) Each 1 Each Allergies Allergies: Coded Allergies: morphine (Verified Adverse Reaction, Unknown, "made me freak out", 07/20/19) ROS General: YES: Chills; No: Other (fevers ) PSYCHOLOGICAL ROS: No: Anxiety, Depression Eyes: No Blurry vision, No Double vision HEENT: No: Heacaches, Sore Throat Hematological and Lymphatic: No: Bleeding Problems, Blood Clots Respiratory: No: Cough, Shortness of breath Cardiovascular: No Chest Pain, No Palpitations Gastrointestinal: No Nausea, No Abdominal Pain Genitourinary: No Dysuria, No Hematuria Musculoskeletal: Yes Muscle Pain; No Joint Pain Neurological: No Numbness/Tingling Skin: Yes Other (see hpi) Physical Exam General: Alert, Oriented X3, Cooperative, No acute distress HEENT: PERRLA, Mucous membr. moist/pink Lungs: Clear to auscultation, Normal air movement Heart: Regular rate, Normal S1, Normal S2 Abdomen: Soft, No tenderness Extremities: No clubbing, No cyanosis Skin: Other (left buttock area, 2 areas of cellulitis with central wound necrosis--erythema markings appear improved, tender to touch ) Neuro: Normal speech, Sensation intact Psych/Mental Status: Mental status NL, Mood NL Vitals VITALS Vital Signs Date Time Temp Pulse Resp B/P (MAP) Pulse Ox O2 Delivery O2 Flow Rate FiO2 07/21/19 09:11 83 113/73 07/21/19 09:06 95 Room Air 07/21/19 07:00 98.3 18 98.3 Labs Labs Laboratory Tests Test 07/20/19 00:30 07/20/19 08:05 07/20/19 08:25 07/21/19 09:40 White Blood Count 13.2 x10^3/uL (4.0-11.0) 8.2 x10^3/uL (4.0-11.0) Red Blood Count 4.64 x10^6/uL (3.50-5.40) 4.29 x10^6/uL (3.50-5.40) Hemoglobin 14.1 g/dL (12.0-15.5) 13.2 g/dL (12.0-15.5) Hematocrit 41.8 % (36.0-47.0) 38.9 % (36.0-47.0) Mean Corpuscular Volume 90 fL (79-100) 91 fL (79-100) Mean Corpuscular Hemoglobin 31 pg (25-35) 31 pg (25-35) Mean Corpuscular Hemoglobin Concent 34 g/dL (31-37) 34 g/dL (31-37) Red Cell Distribution Width 12.8 % (11.5-14.5) 12.8 % (11.5-14.5) Platelet Count 247 x10^3/uL (140-400) 235 x10^3/uL (140-400) Neutrophils (%) (Auto) 73 % (31-73) 49 % (31-73) Lymphocytes (%) (Auto) 18 % (24-48) 36 % (24-48) Monocytes (%) (Auto) 7 % (0-9) 9 % (0-9) Eosinophils (%) (Auto) 1 % (0-3) 5 % (0-3) Basophils (%) (Auto) 0 % (0-3) 1 % (0-3) Neutrophils # (Auto) 9.7 x10^3/uL (1.8-7.7) 4.0 x10^3/uL (1.8-7.7) Lymphocytes # (Auto) 2.4 x10^3/uL (1.0-4.8) 3.0 x10^3/uL (1.0-4.8) Monocytes # (Auto) 0.9 x10^3/uL (0.0-1.1) 0.7 x10^3/uL (0.0-1.1) Eosinophils # (Auto) 0.2 x10^3/uL (0.0-0.7) 0.4 x10^3/uL (0.0-0.7) Basophils # (Auto) 0.0 x10^3/uL (0.0-0.2) 0.0 x10^3/uL (0.0-0.2) Sodium Level 142 mmol/L (136-145) 145 mmol/L (136-145) Potassium Level 3.4 mmol/L (3.5-5.1) 3.9 mmol/L (3.5-5.1) Chloride Level 107 mmol/L (98-107) 111 mmol/L (98-107) Carbon Dioxide Level 26 mmol/L (21-32) 27 mmol/L (21-32) Anion Gap 9 (6-14) 7 (6-14) Blood Urea Nitrogen 10 mg/dL (7-20) 5 mg/dL (7-20) Creatinine 1.0 mg/dL (0.6-1.0) 0.9 mg/dL (0.6-1.0) Estimated GFR (Cockcroft-Gault) 65.6 74.0 BUN/Creatinine Ratio 10 (6-20) Glucose Level 116 mg/dL (70-99) 138 mg/dL (70-99) Lactic Acid Level 0.8 mmol/L (0.4-2.0) Calcium Level 9.1 mg/dL (8.5-10.1) 8.1 mg/dL (8.5-10.1) Total Bilirubin 0.5 mg/dL (0.2-1.0) Aspartate Amino Transf (AST/SGOT) 30 U/L (15-37) Alanine Aminotransferase (ALT/SGPT) 83 U/L (14-59) Alkaline Phosphatase 84 U/L (46-116) Total Protein 7.2 g/dL (6.4-8.2) Albumin 3.4 g/dL (3.4-5.0) Albumin/Globulin Ratio 0.9 (1.0-1.7) Urine Test Negative (NEG) Urine Opiates Screen Neg (NEG) Urine Methadone Screen Neg (NEG) Urine Barbiturates Neg (NEG) Urine Phencyclidine Screen Neg (NEG) Urine Amphetamine/Methamphetamine Pos (NEG) Urine Benzodiazepines Screen Neg (NEG) Urine Cocaine Screen Neg (NEG) Urine Cannabinoids Screen Pos (NEG) Urine Ethyl Alcohol Neg (NEG) Treponema pallidum Antibody Nonreactive (Nonreactive) Hepatitis A IgM Antibody Nonreactive (Nonreactive) Hepatitis B Core Total Antibody Nonreactive (Nonreactive) Hepatitis C IgG Antibody Nonreactive (Nonreactive) HIV (1&2) Antibody Screen Nonreactive (Nonreactive) Laboratory Tests Test 07/21/19 09:40 White Blood Count 8.2 x10^3/uL (4.0-11.0) Red Blood Count 4.29 x10^6/uL (3.50-5.40) Hemoglobin 13.2 g/dL (12.0-15.5) Hematocrit 38.9 % (36.0-47.0) Mean Corpuscular Volume 91 fL (79-100) Mean Corpuscular Hemoglobin 31 pg (25-35) Mean Corpuscular Hemoglobin Concent 34 g/dL (31-37) Red Cell Distribution Width 12.8 % (11.5-14.5) Platelet Count 235 x10^3/uL (140-400) Neutrophils (%) (Auto) 49 % (31-73) Lymphocytes (%) (Auto) 36 % (24-48) Monocytes (%) (Auto) 9 % (0-9) Eosinophils (%) (Auto) 5 % (0-3) Basophils (%) (Auto) 1 % (0-3) Neutrophils # (Auto) 4.0 x10^3/uL (1.8-7.7) Lymphocytes # (Auto) 3.0 x10^3/uL (1.0-4.8) Monocytes # (Auto) 0.7 x10^3/uL (0.0-1.1) Eosinophils # (Auto) 0.4 x10^3/uL (0.0-0.7) Basophils # (Auto) 0.0 x10^3/uL (0.0-0.2) Sodium Level 145 mmol/L (136-145) Potassium Level 3.9 mmol/L (3.5-5.1) Chloride Level 111 mmol/L (98-107) Carbon Dioxide Level 27 mmol/L (21-32) Anion Gap 7 (6-14) Blood Urea Nitrogen 5 mg/dL (7-20) Creatinine 0.9 mg/dL (0.6-1.0) Estimated GFR (Cockcroft-Gault) 74.0 Glucose Level 138 mg/dL (70-99) Calcium Level 8.1 mg/dL (8.5-10.1) Assessment/Plan Assessment/Plan cellulitis continue abx will review with STEPHANIE Rodriguez MD 07/21/19 1630: CONSULT Assessment/Plan Assessment/Plan pt seen, interviewed and examined scan reviewed agree with above no acute surgical need will follow with you Thanks for consult KRISTIN MYLES APRN Jul 21, 2019 10:38 STEPHANIE COUGHLIN MD Jul 21, 2019 16:30
[2019-07-21 11:00] VITALS: BP 115/78
--- NOTE | 2019-07-21 11:14 | NUR ---
SS following for discharge planning. Pt is self pay pt. [facility] following for self pay status. Pt is from home and is currently on room air. Pt positive for Meth and THC. PAT team referral made for substance abuse. Negrito from the PAT team coming to assess pt. SS will continue to follow for discharge planning.
[2019-07-21 13:13] LABS: VANC TR 7.3 mcg/mL (10.0-20.0)
--- NOTE | 2019-07-21 13:25 | NUR ---
SS following up with discharge planning. Negrito from the PAT team contacted SS and reported that he met with pt and pt admitted to using Meth for the past two weeks. Pt reported using THC frequently. Pt reported that she used to be involved in the [facility] due to a history of Depression and Anxiety. Negrito reported that resources were provided to pt for [facility] and pt reported that she is going to restart outpatient services for mental health after discharge.
[2019-07-21] MEDS: ALPRAZolam 0.5 MG TABLET PO PRN (13:36)
[2019-07-21] MEDS: VANCOMYCIN 1.5 GM in IV NORMAL SALINE 500ML BAG 500 ML IV SCH (13:37)
[2019-07-21] MEDS: VANCOMYCIN PER PHARMACY MC PRN (13:40)
--- NOTE | 2019-07-21 13:41 | NUR ---
Pharmacy Vancomycin Dosing Note S: Consulted to monitor and dose vancomycin started 07/20/19. O: LATRELL HERNANDEZ is a 29 year old F with Abscess Cellulitis, . Other Antibiotics: LABS: Last BUN: 5 Last Creatinine: 0.9 Creatinine Clearance: 99 mL/min Last WBC: 8.2 Last Procalcitonin: Tmax (past 24 hours): Microbiology: I/O: 1000/100 Drug Levels: Last Trough level: 7.3 on 07/21/19 at 1300 Last dose given at Vancomycin Dosing: Dosing Weight: Actual Target Trough: 10-20 Missed dose last night resulting in a low trough. Continue same dose and check trough tomorrow. A: Based on: trough=7.3, see directly above. P: 1. Continue Vancomycin 1500 mg IV q12h 2. Follow up Trough level on 07/22/19 at 1300 3. Pharmacy will continue to monitor, follow and adjust therapy as needed. ERIC RODRIGUEZ, [facility], 07/21/19 [id number]
[2019-07-21 14:45] VITALS: BP 124/79
--- NOTE | 2019-07-21 17:04 | NUR ---
Wound Care Wound care consult for left buttock abscess. Cleansed area and dressed with Aquacel Ag and foam dressing. Pt also has dry slough covered abscess with resolving redness. Covered with foam for protection. No other wounds noted on full skin inspection. WC will continue to follow for possible changes.
--- NOTE | 2019-07-21 18:34 | NUR ---
assumed care at 1430. significant other and friends at bedside. she was medicated with Toradol and Percocet x1 each. states her pain increases with ambulation.
[2019-07-21 19:00] VITALS: BP 122/78
[2019-07-21] MEDS ORDERED: MAGNESIUM CITRATE 296 ML SOLUTION. PO ONE (21:30)
[2019-07-21] MEDS: DOCUSATE SODIUM 100 MG CAPSULE. PO SCH (22:25)
[2019-07-21 23:00] VITALS: BP 124/80
[2019-07-22] MEDS: VANCOMYCIN 1.5 GM in IV NORMAL SALINE 500ML BAG 500 ML IV SCH (02:16)
[2019-07-22] MEDS: KETOROLAC 15 MG/ML VIAL. IVP PRN (02:16)
[2019-07-22 03:00] VITALS: BP 127/80
[2019-07-22 07:00] VITALS: BP 140/88
[2019-07-22] MEDS: oxyCODONE/APAP 5/325 1 TAB TABLET PO PRN ×4 (07:37→20:55)
--- NOTE | 2019-07-22 08:14 | PDOC ---
Infectious Disease Note Subjective: Subjective pt feels better now that the lesion is draining no f/c/n/v/d/sob ROS: ROS Negative otherwise. Vital Signs: Vital Signs Vital Signs Date Time Temp Pulse Resp B/P (MAP) Pulse Ox O2 Delivery O2 Flow Rate FiO2 07/22/19 03:00 98.4 73 18 127/80 (96) 96 Room Air 98.4 Physical Exam: PHYSICAL EXAM GENERAL: Alert, oriented, well-nourished, well-developed female, nontoxic appearing, in no acute distress. HEENT: Nonicteric. No oral lesions. NECK: Supple. LUNGS: Clear bilaterally. HEART: S1, S2. ABDOMEN: Soft, obese. Bowel sounds present, nontender, nondistended. EXTREMITIES: Left buttock redness, swelling, tenderness, 3 lesions with one possible early developing abscess, tender, has multiple excoriation all over the lower extremity. MUSCULOSKELETAL: No joint effusion, no decrease in range of motion. DERMATOLOGIC: Warm and dry. Multiple superficial abrasions all over the face, upper extremity and lower extremity and as above. NEUROLOGIC: Alert and oriented x 3, grossly nonfocal. PSYCHIATRIC: Cooperative, appropriate mood and affect. Medications: Inpatient Meds: Current Medications Medications (Trade) Dose Ordered Sig/[facility] Start Time Stop Time Status Last Admin Dose Admin Acetaminophen (Tylenol) 650 mg PRN Q4HRS PRN 07/20/19 01:15 07/21/19 01:14 DC Alprazolam (Xanax) 0.5 mg PRN Q8HRS PRN 07/21/19 12:45 07/21/19 13:36 0.5 MG Atenolol (Tenormin) 25 mg BID 07/20/19 09:00 07/21/19 21:13 25 MG Docusate Sodium (Colace) 100 mg DAILY 07/21/19 21:30 07/21/19 22:25 100 MG Fentanyl Citrate (Fentanyl 2ml Vial) 50 mcg PRN Q1HR PRN 07/20/19 01:15 07/21/19 01:14 DC 07/20/19 22:33 50 MCG Hydroxyzine HCl (Atarax) 25 mg PRN Q6HRS PRN 07/20/19 04:15 07/20/19 04:26 25 MG Info (CONTRAST GIVEN -- Rx MONITORING) 1 each PRN DAILY PRN 10/20/19 08:15 07/22/19 08:14 Iohexol (Omnipaque 300 Mg/ml) 75 ml 1X ONCE 07/20/19 08:15 07/20/19 08:16 DC 07/20/19 08:15 75 ML Ketorolac Tromethamine (Toradol 15mg Vial) 15 mg PRN Q6HRS PRN 07/20/19 12:45 07/25/19 12:44 07/22/19 02:16 15 MG Lactobacillus Rhamnosus (Culturelle) 1 cap BID 07/20/19 21:00 07/21/19 21:10 1 CAP Magnesium Citrate (Citroma) 296 ml 1X ONCE 07/21/19 21:30 07/21/19 21:31 DC 07/21/19 22:25 296 ML Ondansetron HCl (Zofran) 4 mg PRN Q6HRS PRN 07/21/19 08:15 Oxycodone/ Acetaminophen (Percocet 5/325) 1 tab PRN Q4HRS PRN 07/20/19 12:45 07/22/19 07:37 1 TAB Polyethylene Glycol (miraLAX PACKET) 17 gm DAILY 07/22/19 09:00 Potassium Chloride (Klor-Con) 40 meq 1X ONCE 07/20/19 12:45 07/20/19 12:46 DC 07/20/19 12:51 40 MEQ Sodium Chloride 1,000 ml @ 1,000 mls/hr 1X ONCE 07/20/19 00:30 07/20/19 01:29 DC 07/20/19 00:51 1,000 MLS/HR Vancomycin HCl (Vanco Per Pharmacy) 1 each PRN DAILY PRN 07/20/19 00:30 07/21/19 13:40 1 EACH Vancomycin HCl (Vancomycin Trough Level) 1 each 1X ONCE 07/22/19 13:00 07/22/19 13:01 Vancomycin HCl 1.5 gm/Sodium Chloride 500 ml @ 250 mls/hr Q12H 07/20/19 13:30 07/22/19 02:16 250 MLS/HR Vancomycin HCl 2 gm/Sodium Chloride 500 ml @ 250 mls/hr 1X ONCE 07/20/19 01:00 07/20/19 02:59 DC 07/20/19 01:12 250 MLS/HR Labs: Lab Laboratory Tests Test 07/21/19 09:40 07/21/19 12:40 White Blood Count 8.2 x10^3/uL (4.0-11.0) Red Blood Count 4.29 x10^6/uL (3.50-5.40) Hemoglobin 13.2 g/dL (12.0-15.5) Hematocrit 38.9 % (36.0-47.0) Mean Corpuscular Volume 91 fL (79-100) Mean Corpuscular Hemoglobin 31 pg (25-35) Mean Corpuscular Hemoglobin Concent 34 g/dL (31-37) Red Cell Distribution Width 12.8 % (11.5-14.5) Platelet Count 235 x10^3/uL (140-400) Neutrophils (%) (Auto) 49 % (31-73) Lymphocytes (%) (Auto) 36 % (24-48) Monocytes (%) (Auto) 9 % (0-9) Eosinophils (%) (Auto) 5 % (0-3) Basophils (%) (Auto) 1 % (0-3) Neutrophils # (Auto) 4.0 x10^3/uL (1.8-7.7) Lymphocytes # (Auto) 3.0 x10^3/uL (1.0-4.8) Monocytes # (Auto) 0.7 x10^3/uL (0.0-1.1) Eosinophils # (Auto) 0.4 x10^3/uL (0.0-0.7) Basophils # (Auto) 0.0 x10^3/uL (0.0-0.2) Sodium Level 145 mmol/L (136-145) Potassium Level 3.9 mmol/L (3.5-5.1) Chloride Level 111 mmol/L (98-107) Carbon Dioxide Level 27 mmol/L (21-32) Anion Gap 7 (6-14) Blood Urea Nitrogen 5 mg/dL (7-20) Creatinine 0.9 mg/dL (0.6-1.0) Estimated GFR (Cockcroft-Gault) 74.0 Glucose Level 138 mg/dL (70-99) Calcium Level 8.1 mg/dL (8.5-10.1) Vancomycin Level Trough 7.3 mcg/mL (10.0-20.0) Vancomycin Last Dose Date 07/21/19 Vancomycin Last Dose Time 0130 Micro reviewed Objective: Assessment: 1. Lt buttock lesions, one early developing Left buttock abscess with cellulitis.improving ct neg for abscess gen surgery evaluated pt, 2. History of polysubstance use.HIV, hepatitis profile and RPR neg 3. Leukocytosis.resolved Plan: Plan of Care 1. DC IV Vanc 2. zyvox 3. sw to assist for home dc zyvox 4. bc neg 5. Continue local care. 6. ok to dc home from id standpoint 7 quit drugs Discussed with RN. WILFREDO SUAREZ MD Jul 22, 2019 08:13
--- NOTE | 2019-07-22 08:29 | PDOC ---
KRISTIN MYLES GENERAL UTILITY MACHINE OPERATOR 07/22/19 0829: SURGICAL PROGRESS NOTE Subjective more drainage from wounds pain improving with meds Vital Signs Vital Signs Date Time Temp Pulse Resp B/P (MAP) Pulse Ox O2 Delivery O2 Flow Rate FiO2 07/22/19 08:00 Room Air 07/22/19 03:00 98.4 73 18 127/80 (96) 96 98.4 I&O Intake and Output 07/22/19 07:00 Intake Total 1800 ml Balance 1800 ml Intake Oral 1800 ml # Voids 4 General: Alert, Oriented X3, Cooperative Skin: Other (minimal erythema, wounds without signs of underlying abscess ) Labs Laboratory Tests Test 07/21/19 09:40 07/21/19 12:40 White Blood Count 8.2 x10^3/uL (4.0-11.0) Red Blood Count 4.29 x10^6/uL (3.50-5.40) Hemoglobin 13.2 g/dL (12.0-15.5) Hematocrit 38.9 % (36.0-47.0) Mean Corpuscular Volume 91 fL (79-100) Mean Corpuscular Hemoglobin 31 pg (25-35) Mean Corpuscular Hemoglobin Concent 34 g/dL (31-37) Red Cell Distribution Width 12.8 % (11.5-14.5) Platelet Count 235 x10^3/uL (140-400) Neutrophils (%) (Auto) 49 % (31-73) Lymphocytes (%) (Auto) 36 % (24-48) Monocytes (%) (Auto) 9 % (0-9) Eosinophils (%) (Auto) 5 % (0-3) Basophils (%) (Auto) 1 % (0-3) Neutrophils # (Auto) 4.0 x10^3/uL (1.8-7.7) Lymphocytes # (Auto) 3.0 x10^3/uL (1.0-4.8) Monocytes # (Auto) 0.7 x10^3/uL (0.0-1.1) Eosinophils # (Auto) 0.4 x10^3/uL (0.0-0.7) Basophils # (Auto) 0.0 x10^3/uL (0.0-0.2) Sodium Level 145 mmol/L (136-145) Potassium Level 3.9 mmol/L (3.5-5.1) Chloride Level 111 mmol/L (98-107) Carbon Dioxide Level 27 mmol/L (21-32) Anion Gap 7 (6-14) Blood Urea Nitrogen 5 mg/dL (7-20) Creatinine 0.9 mg/dL (0.6-1.0) Estimated GFR (Cockcroft-Gault) 74.0 Glucose Level 138 mg/dL (70-99) Calcium Level 8.1 mg/dL (8.5-10.1) Vancomycin Level Trough 7.3 mcg/mL (10.0-20.0) Vancomycin Last Dose Date 07/21/19 Vancomycin Last Dose Time 0130 Laboratory Tests Test 07/21/19 09:40 07/21/19 12:40 White Blood Count 8.2 x10^3/uL (4.0-11.0) Red Blood Count 4.29 x10^6/uL (3.50-5.40) Hemoglobin 13.2 g/dL (12.0-15.5) Hematocrit 38.9 % (36.0-47.0) Mean Corpuscular Volume 91 fL (79-100) Mean Corpuscular Hemoglobin 31 pg (25-35) Mean Corpuscular Hemoglobin Concent 34 g/dL (31-37) Red Cell Distribution Width 12.8 % (11.5-14.5) Platelet Count 235 x10^3/uL (140-400) Neutrophils (%) (Auto) 49 % (31-73) Lymphocytes (%) (Auto) 36 % (24-48) Monocytes (%) (Auto) 9 % (0-9) Eosinophils (%) (Auto) 5 % (0-3) Basophils (%) (Auto) 1 % (0-3) Neutrophils # (Auto) 4.0 x10^3/uL (1.8-7.7) Lymphocytes # (Auto) 3.0 x10^3/uL (1.0-4.8) Monocytes # (Auto) 0.7 x10^3/uL (0.0-1.1) Eosinophils # (Auto) 0.4 x10^3/uL (0.0-0.7) Basophils # (Auto) 0.0 x10^3/uL (0.0-0.2) Sodium Level 145 mmol/L (136-145) Potassium Level 3.9 mmol/L (3.5-5.1) Chloride Level 111 mmol/L (98-107) Carbon Dioxide Level 27 mmol/L (21-32) Anion Gap 7 (6-14) Blood Urea Nitrogen 5 mg/dL (7-20) Creatinine 0.9 mg/dL (0.6-1.0) Estimated GFR (Cockcroft-Gault) 74.0 Glucose Level 138 mg/dL (70-99) Calcium Level 8.1 mg/dL (8.5-10.1) Vancomycin Level Trough 7.3 mcg/mL (10.0-20.0) Vancomycin Last Dose Date 07/21/19 Vancomycin Last Dose Time 0130 Problem List Problems Medical Problems: (1) Abscess Status: Acute (2) Cellulitis Status: Acute Assessment/Plan wound care, abx no surgical plans STEPHANIE COUGHLIN MD 07/23/19 0911: SURGICAL PROGRESS NOTE Assessment/Plan LATE ENTRY pt seen yesterday agree with above will sign off please call if needed Thanks you KRISTIN MYLES APRN Jul 22, 2019 08:29 STEPHANIE COUGHLIN MD Jul 23, 2019 09:11
[2019-07-22] MEDS: ATENOLOL 25 MG TABLET. PO SCH ×2 (09:37→20:54)
[2019-07-22] MEDS: CELECOXIB 100 MG CAPSULE. PO SCH ×2 (09:37→20:55)
[2019-07-22] MEDS: DOCUSATE SODIUM 100 MG CAPSULE. PO SCH (09:37)
[2019-07-22] MEDS: POLYETHYLENE GLYCOL 3350 17 GM PACKET. PO SCH (09:38)
[2019-07-22] MEDS: LACTOBACILLUS RHAMNOSUS GG 1 CAPSULE. PO SCH ×2 (09:38→20:55)
[2019-07-22 11:00] VITALS: BP 125/75
--- NOTE | 2019-07-22 11:17 | PDOC ---
PROGRESS NOTES Chief Complaint Chief Complaint LEft gluteal abscess with cellulitis - no surgical plans NON DM RECreational drug use but denies IVDU Obesity BMI 35.7 History of Present Illness History of Present Illness No surgical plans I have inspected the gluteal area, less induration and redness from the sharpied area BUT drainage continues NOn febrile, non toxic appearing PLAN: CPM IV abx, wound care no surgical plans Cont reg diet STarts ome celebrex BID to help with pain and swelling Vitals Vitals Vital Signs Date Time Temp Pulse Resp B/P (MAP) Pulse Ox O2 Delivery O2 Flow Rate FiO2 07/22/19 09:37 79 140/88 07/22/19 08:00 Room Air 07/22/19 07:00 98.2 16 97 98.2 Physical Exam Physical Exam GENERAL: Alert, oriented, well-nourished, well-developed female, nontoxic appearing, in no acute distress. HEENT: Nonicteric. No oral lesions. NECK: Supple. LUNGS: Clear bilaterally. HEART: S1, S2. ABDOMEN: Soft, obese. Bowel sounds present, nontender, nondistended. EXTREMITIES: Left buttock redness, swelling, tenderness, 3 lesions with one possible early developing abscess, tender, has multiple excoriation all over the lower extremity. MUSCULOSKELETAL: No joint effusion, no decrease in range of motion. DERMATOLOGIC: Warm and dry. Multiple superficial abrasions all over the face, upper extremity and lower extremity and as above. NEUROLOGIC: Alert and oriented x 3, grossly nonfocal. PSYCHIATRIC: Cooperative, appropriate mood and affect. General: Alert, Oriented X3, Cooperative Heart: Regular rate, Normal S1, Normal S2 Lungs: Clear Abdomen: Soft, No tenderness Extremities: No clubbing, No cyanosis Skin: Other (minimal erythema, wounds without signs of underlying abscess ) Labs LABS Laboratory Tests Test 07/21/19 12:40 Vancomycin Level Trough 7.3 mcg/mL (10.0-20.0) Vancomycin Last Dose Date 07/21/19 Vancomycin Last Dose Time 0130 Review of Systems Review of Systems neg 14 pt aside from tolerable left butt cheek pain Assessment and Plan Assessmemt and Plan Problems Medical Problems: (1) Abscess Status: Acute (2) Cellulitis Status: Acute Comment Review of Relevant I have reviewed the following items franci (where applicable) has been applied. Labs Laboratory Tests Test 07/21/19 09:40 07/21/19 12:40 White Blood Count 8.2 x10^3/uL (4.0-11.0) Red Blood Count 4.29 x10^6/uL (3.50-5.40) Hemoglobin 13.2 g/dL (12.0-15.5) Hematocrit 38.9 % (36.0-47.0) Mean Corpuscular Volume 91 fL (79-100) Mean Corpuscular Hemoglobin 31 pg (25-35) Mean Corpuscular Hemoglobin Concent 34 g/dL (31-37) Red Cell Distribution Width 12.8 % (11.5-14.5) Platelet Count 235 x10^3/uL (140-400) Neutrophils (%) (Auto) 49 % (31-73) Lymphocytes (%) (Auto) 36 % (24-48) Monocytes (%) (Auto) 9 % (0-9) Eosinophils (%) (Auto) 5 % (0-3) Basophils (%) (Auto) 1 % (0-3) Neutrophils # (Auto) 4.0 x10^3/uL (1.8-7.7) Lymphocytes # (Auto) 3.0 x10^3/uL (1.0-4.8) Monocytes # (Auto) 0.7 x10^3/uL (0.0-1.1) Eosinophils # (Auto) 0.4 x10^3/uL (0.0-0.7) Basophils # (Auto) 0.0 x10^3/uL (0.0-0.2) Sodium Level 145 mmol/L (136-145) Potassium Level 3.9 mmol/L (3.5-5.1) Chloride Level 111 mmol/L (98-107) Carbon Dioxide Level 27 mmol/L (21-32) Anion Gap 7 (6-14) Blood Urea Nitrogen 5 mg/dL (7-20) Creatinine 0.9 mg/dL (0.6-1.0) Estimated GFR (Cockcroft-Gault) 74.0 Glucose Level 138 mg/dL (70-99) Calcium Level 8.1 mg/dL (8.5-10.1) Vancomycin Level Trough 7.3 mcg/mL (10.0-20.0) Vancomycin Last Dose Date 07/21/19 Vancomycin Last Dose Time 0130 Laboratory Tests Test 07/21/19 12:40 Vancomycin Level Trough 7.3 mcg/mL (10.0-20.0) Vancomycin Last Dose Date 07/21/19 Vancomycin Last Dose Time 129 Microbiology 07/20/19 Blood Culture - Preliminary, Resulted NO GROWTH AFTER 2 DAYS Medications Current Medications Sodium Chloride 1,000 ml @ 1,000 mls/hr 1X ONCE IV Last administered on 07/20/19at 00:51; Start 07/20/19 at 00:30; Stop 07/20/19 at 01:29; Status DC Fentanyl Citrate (Fentanyl 2ml Vial) 50 mcg 1X ONCE IVP Last administered on 07/20/19at 00:53; Start 07/20/19 at 00:45; Stop 07/20/19 at 00:46; Status DC Vancomycin HCl (Vanco Per Pharmacy) 1 each PRN DAILY PRN MC SEE COMMENTS Last administered on 07/21/19at 13:40; Start 07/20/19 at 00:30; Stop 07/22/19 at 10 :15; Status DC Vancomycin HCl 2 gm/Sodium Chloride 500 ml @ 250 mls/hr 1X ONCE IV Last administered on 07/20/19at 01:12; Start 07/20/19 at 01:00; Stop 07/20/19 at 02:59; Status DC Ondansetron HCl (Zofran) 4 mg PRN Q8HRS PRN IV NAUSEA/VOMITING Last administered on 07/20/19at 02:44; Start 07/20/19 at 01:15; Stop 07/21/19 at 01:14; Status DC Fentanyl Citrate (Fentanyl 2ml Vial) 50 mcg PRN Q1HR PRN IV PAIN Last administered on 07/20/19at 22:33; Start 07/20/19 at 01:15; Stop 07/21/19 at 01:14; Status DC Acetaminophen (Tylenol) 650 mg PRN Q4HRS PRN PO FEVER; Start 07/20/19 at 01:15; Stop 07/21/19 at 01:14; Status DC Vancomycin HCl 1.5 gm/Sodium Chloride 500 ml @ 250 mls/hr Q12H IV Last administered on 07/22/19at 02:16; Start 07/20/19 at 13:30; Stop 07/22/19 at 10:15; Status DC Vancomycin HCl (Vancomycin Trough Level) 1 each 1X ONCE MC Last administered on 07/21/19at 12:41; Start 07/21/19 at 13:00; Stop 07/21/19 at 13:01; Status DC Atenolol (Tenormin) 25 mg BID PO Last administered on 07/22/19at 09:37; Start 07/20/19 at 09:00 Hydroxyzine HCl (Atarax) 25 mg PRN Q6HRS PRN PO ITCHING Last administered on 07/20/19at 04:26; Start 07/20/19 at 04:15 Iohexol (Omnipaque 300 Mg/ml) 75 ml 1X ONCE IV Last administered on 07/20/19at 08:15; Start 07/20/19 at 08:15; Stop 07/20/19 at 08:16; Status DC Info (CONTRAST GIVEN -- Rx MONITORING) 1 each PRN DAILY PRN MC SEE COMMENTS; Start 07/20/19 at 08:15; Stop 07/22/19 at 08:14; Status DC Lactobacillus Rhamnosus (Culturelle) 1 cap BID PO Last administered on 07/22/19at 09:38; Start 07/20/19 at 21:00 Oxycodone/ Acetaminophen (Percocet 5/325) 1 tab PRN Q4HRS PRN PO PAIN Last administered on 07/22/19at 07:37; Start 07/20/19 at 12:45 Ketorolac Tromethamine (Toradol 15mg Vial) 15 mg PRN Q6HRS PRN IVP PAIN MILD Last administered on 07/22/19at 02:16; Start 07/20/19 at 12:45; Stop 07/25/19 at 12:44 Potassium Chloride (Klor-Con) 40 meq 1X ONCE PO Last administered on 07/20/19at 12:51; Start 07/20/19 at 12:45; Stop 07/20/19 at 12:46; Status DC Ondansetron HCl (Zofran) 4 mg PRN Q6HRS PRN IVP NAUSEA/VOMITING; Start 07/21/19 at 08:15 Alprazolam (Xanax) 0.5 mg PRN Q8HRS PRN PO ANXIETY / AGITATION Last administered on 07/21/19at 13:36; Start 07/21/19 at 12:45 Vancomycin HCl (Vancomycin Trough Level) 1 each 1X ONCE MC ; Start 07/21/19 at 13:00; Stop 07/21/19 at 13:01; Status Cancel Vancomycin HCl (Vancomycin Trough Level) 1 each 1X ONCE MC ; Start 07/22/19 at 13:00; Stop 07/22/19 at 10:15; Status DC Docusate Sodium (Colace) 100 mg DAILY PO Last administered on 07/22/19at 09:37; Start 07/21/19 at 21:30 Polyethylene Glycol (miraLAX PACKET) 17 gm DAILY PO Last administered on 07/22/19at 09:38; Start 07/22/19 at 09:00 Magnesium Citrate (Citroma) 296 ml 1X ONCE PO Last administered on 07/21/19at 22:25; Start 07/21/19 at 21:30; Stop 07/21/19 at 21:31; Status DC Celecoxib (CeleBREX) 100 mg BID PO Last administered on 07/22/19at 09:37; Start 07/22/19 at 09:00 Linezolid (Zyvox) 600 mg BID PO ; Start 07/22/19 at 11:00 Active Scripts Active Reported No Known Medications Prior To Admisstion (Info) Each 1 Each MC Vitals/I & O Vital Sign - Last 24 Hours 07/21/19 07/21/19 07/21/19 07/21/19 11:52 12:46 14:45 19:00 Temp 97.9 97.8 97.9 97.8 Pulse 82 89 Resp 16 16 18 B/P (MAP) 124/79 (94) 122/78 (93) Pulse Ox 100 100 99 97 O2 Delivery Room Air Room Air Room Air Room Air 07/21/19 07/21/19 07/21/19 07/21/19 19:05 20:30 21:13 22:25 Pulse 75 Resp 20 B/P (MAP) 118/77 Pulse Ox 97 O2 Delivery Room Air Room Air Room Air 07/21/19 07/21/19 07/22/19 07/22/19 23:00 23:30 03:00 07:00 Temp 98.4 98.4 98.2 98.4 98.4 98.2 Pulse 78 73 79 Resp 18 18 16 B/P (MAP) 124/80 (95) 127/80 (96) 140/88 (105) Pulse Ox 96 96 97 O2 Delivery Room Air Room Air Room Air Room Air 07/22/19 07/22/19 08:00 09:37 Pulse 79 B/P (MAP) 140/88 O2 Delivery Room Air Intake and Output 07/21/19 07/21/19 07/22/19 15:00 23:00 07:00 Intake Total 240 ml 1080 ml 480 ml Balance 240 ml 1080 ml 480 ml NERI GARCIA MD Jul 22, 2019 11:17
[2019-07-22] MEDS: LINEZOLID 600 MG TABLET PO SCH ×2 (11:32→20:55)
[2019-07-22 15:00] VITALS: BP 149/100
--- NOTE | 2019-07-22 16:04 | NUR ---
Wound Care Dressing changed to medihoney, foam and hydrocolloid every other day.
[2019-07-22 19:20] VITALS: BP 164/105
[2019-07-22] MEDS: ALPRAZolam 0.5 MG TABLET PO PRN (20:54)
[2019-07-22 23:08] VITALS: BP 128/76
[2019-07-23 03:00] VITALS: BP 132/79
[2019-07-23 07:00] VITALS: BP 119/69
[2019-07-23 08:46] VITALS: BP 119/69
[2019-07-23] MEDS: LACTOBACILLUS RHAMNOSUS GG 1 CAPSULE. PO SCH (08:46)
[2019-07-23] MEDS: ATENOLOL 25 MG TABLET. PO SCH (08:46)
[2019-07-23] MEDS: CELECOXIB 100 MG CAPSULE. PO SCH (08:47)
[2019-07-23] MEDS: LINEZOLID 600 MG TABLET PO SCH (08:47)
[2019-07-23] MEDS: DOCUSATE SODIUM 100 MG CAPSULE. PO SCH (08:47)
[2019-07-23] MEDS: oxyCODONE/APAP 5/325 1 TAB TABLET PO PRN (08:52)
[2019-07-23] MEDS: POLYETHYLENE GLYCOL 3350 17 GM PACKET. PO SCH (09:00)
--- NOTE | 2019-07-23 09:33 | PDOC ---
Infectious Disease Note Subjective: Subjective pt feels better now that the lesion is draining pain and swelling has improved no f/c/n/v/d/sob ROS: ROS Negative otherwise. Vital Signs: Vital Signs Vital Signs Date Time Temp Pulse Resp B/P (MAP) Pulse Ox O2 Delivery O2 Flow Rate FiO2 07/23/19 08:52 96 Room Air 07/23/19 08:46 63 119/69 07/23/19 07:00 98.6 18 98.6 Physical Exam: PHYSICAL EXAM GENERAL: Alert, oriented, well-nourished, well-developed female, nontoxic appearing, in no acute distress. HEENT: Nonicteric. No oral lesions. NECK: Supple. LUNGS: Clear bilaterally. HEART: S1, S2. ABDOMEN: Soft, obese. Bowel sounds present, nontender, nondistended. EXTREMITIES: Left buttock redness, swelling, tenderness, 3 lesions with one possible early developing abscess, tender, has multiple excoriation all over the lower extremity. MUSCULOSKELETAL: No joint effusion, no decrease in range of motion. DERMATOLOGIC: Warm and dry. Multiple superficial abrasions all over the face, upper extremity and lower extremity and as above. NEUROLOGIC: Alert and oriented x 3, grossly nonfocal. PSYCHIATRIC: Cooperative, appropriate mood and affect. Medications: Inpatient Meds: Current Medications Medications (Trade) Dose Ordered Sig/[facility] Start Time Stop Time Status Last Admin Dose Admin Acetaminophen (Tylenol) 650 mg PRN Q4HRS PRN 07/20/19 01:15 07/21/19 01:14 DC Alprazolam (Xanax) 0.5 mg PRN Q8HRS PRN 07/21/19 12:45 07/22/19 20:54 0.5 MG Atenolol (Tenormin) 25 mg BID 07/20/19 09:00 07/23/19 08:46 25 MG Celecoxib (CeleBREX) 100 mg BID 07/22/19 09:00 07/23/19 08:47 100 MG Docusate Sodium (Colace) 100 mg DAILY 07/21/19 21:30 07/22/19 09:37 100 MG Fentanyl Citrate (Fentanyl 2ml Vial) 50 mcg PRN Q1HR PRN 07/20/19 01:15 07/21/19 01:14 DC 07/20/19 22:33 50 MCG Hydroxyzine HCl (Atarax) 25 mg PRN Q6HRS PRN 07/20/19 04:15 07/20/19 04:26 25 MG Info (CONTRAST GIVEN -- Rx MONITORING) 1 each PRN DAILY PRN 07/20/19 08:15 07/22/19 08:14 DC Iohexol (Omnipaque 300 Mg/ml) 75 ml 1X ONCE 07/20/19 08:15 07/20/19 08:16 DC 07/20/19 08:15 75 ML Ketorolac Tromethamine (Toradol 15mg Vial) 15 mg PRN Q6HRS PRN 07/20/19 12:45 07/25/19 12:44 07/22/19 02:16 15 MG Lactobacillus Rhamnosus (Culturelle) 1 cap BID 07/20/19 21:00 07/23/19 08:46 1 CAP Linezolid (Zyvox) 600 mg BID 07/22/19 11:00 07/23/19 08:47 600 MG Magnesium Citrate (Citroma) 296 ml 1X ONCE 07/21/19 21:30 07/21/19 21:31 DC 07/21/19 22:25 296 ML Ondansetron HCl (Zofran) 4 mg PRN Q6HRS PRN 07/21/19 08:15 Oxycodone/ Acetaminophen (Percocet 5/325) 1 tab PRN Q4HRS PRN 07/20/19 12:45 07/23/19 08:52 1 TAB Polyethylene Glycol (miraLAX PACKET) 17 gm DAILY 07/22/19 09:00 07/22/19 09:38 17 GM Potassium Chloride (Klor-Con) 40 meq 1X ONCE 07/20/19 12:45 07/20/19 12:46 DC 07/20/19 12:51 40 MEQ Sodium Chloride 1,000 ml @ 1,000 mls/hr 1X ONCE 07/20/19 00:30 07/20/19 01:29 DC 07/20/19 00:51 1,000 MLS/HR Vancomycin HCl (Vanco Per Pharmacy) 1 each PRN DAILY PRN 07/20/19 00:30 07/22/19 10:15 DC 07/21/19 13:40 1 EACH Vancomycin HCl (Vancomycin Trough Level) 1 each 1X ONCE 07/22/19 13:00 07/22/19 10:15 DC Vancomycin HCl 1.5 gm/Sodium Chloride 500 ml @ 250 mls/hr Q12H 07/20/19 13:30 07/22/19 10:15 DC 07/22/19 02:16 250 MLS/HR Vancomycin HCl 2 gm/Sodium Chloride 500 ml @ 250 mls/hr 1X ONCE 07/20/19 01:00 07/20/19 02:59 DC 07/20/19 01:12 250 MLS/HR Labs: Micro reviewed Objective: Assessment: 1. Lt buttock lesions, one early developing Left buttock abscess with cellulitis. ct neg for abscess improving 2. History of polysubstance use.HIV, hepatitis profile and RPR neg 3. Leukocytosis.resolved Plan: Plan of Care cont zyvox sw to assist for home dc zyvox Continue local care. ok to dc home from id standpoint quit drugs Discussed with RN. WILFREDO SUAREZ MD Jul 23, 2019 09:33
--- NOTE | 2019-07-23 09:53 | PDOC ---
PROGRESS NOTES Chief Complaint Chief Complaint LEft gluteal abscess with cellulitis - no surgical plans NON DM RECreational drug use but denies IVDU Obesity BMI 35.7 History of Present Illness History of Present Illness No surgical plans I have inspected the gluteal area, less induration and redness from the sharpied area BUT drainage continues NOn febrile, non toxic appearing PLAN: CPM IV abx, wound care no surgical plans Cont reg diet STarts ome celebrex BID to help with pain and swelling Vitals Vitals Vital Signs Date Time Temp Pulse Resp B/P (MAP) Pulse Ox O2 Delivery O2 Flow Rate FiO2 07/23/19 08:52 96 Room Air 07/23/19 08:46 63 119/69 07/23/19 07:00 98.6 18 98.6 Physical Exam Physical Exam GENERAL: Alert, oriented, well-nourished, well-developed female, nontoxic appearing, in no acute distress. HEENT: Nonicteric. No oral lesions. NECK: Supple. LUNGS: Clear bilaterally. HEART: S1, S2. ABDOMEN: Soft, obese. Bowel sounds present, nontender, nondistended. EXTREMITIES: Left buttock redness, swelling, tenderness, 3 lesions with one possible early developing abscess, tender, has multiple excoriation all over the lower extremity. MUSCULOSKELETAL: No joint effusion, no decrease in range of motion. DERMATOLOGIC: Warm and dry. Multiple superficial abrasions all over the face, upper extremity and lower extremity and as above. NEUROLOGIC: Alert and oriented x 3, grossly nonfocal. PSYCHIATRIC: Cooperative, appropriate mood and affect. General: Alert, Oriented X3, Cooperative Heart: Regular rate, Normal S1, Normal S2 Lungs: Clear Abdomen: Soft, No tenderness Extremities: No clubbing, No cyanosis Skin: Other (minimal erythema, wounds without signs of underlying abscess ) Assessment and Plan Assessmemt and Plan Problems Medical Problems: (1) Abscess Status: Acute (2) Cellulitis Status: Acute Comment Review of Relevant I have reviewed the following items franci (where applicable) has been applied. Labs Laboratory Tests Test 07/21/19 12:40 Vancomycin Level Trough 7.3 mcg/mL (10.0-20.0) Vancomycin Last Dose Date 07/21/19 Vancomycin Last Dose Time 0130 Microbiology 07/20/19 Blood Culture - Preliminary, Resulted NO GROWTH AFTER 3 DAYS Medications Current Medications Sodium Chloride 1,000 ml @ 1,000 mls/hr 1X ONCE IV Last administered on 07/20/19at 00:51; Start 07/20/19 at 00:30; Stop 07/20/19 at 01:29; Status DC Fentanyl Citrate (Fentanyl 2ml Vial) 50 mcg 1X ONCE IVP Last administered on 07/20/19at 00:53; Start 07/20/19 at 00:45; Stop 07/20/19 at 00:46; Status DC Vancomycin HCl (Vanco Per Pharmacy) 1 each PRN DAILY PRN MC SEE COMMENTS Last administered on 07/21/19at 13:40; Start 07/20/19 at 00:30; Stop 07/22/19 at 10:15; Status DC Vancomycin HCl 2 gm/Sodium Chloride 500 ml @ 250 mls/hr 1X ONCE IV Last administered on 07/20/19at 01:12; Start 07/20/19 at 01:00; Stop 07/20/19 at 02:59; Status DC Ondansetron HCl (Zofran) 4 mg PRN Q8HRS PRN IV NAUSEA/VOMITING Last administered on 07/20/19at 02:44; Start 07/20/19 at 01:15; Stop 07/21/19 at 01:14; Status DC Fentanyl Citrate (Fentanyl 2ml Vial) 50 mcg PRN Q1HR PRN IV PAIN Last administered on 07/20/19at 22:33; Start 07/20/19 at 01:15; Stop 07/21/19 at 01:14; Status DC Acetaminophen (Tylenol) 650 mg PRN Q4HRS PRN PO FEVER; Start 07/20/19 at 01:15; Stop 07/21/19 at 01:14; Status DC Vancomycin HCl 1.5 gm/Sodium Chloride 500 ml @ 250 mls/hr Q12H IV Last administered on 07/22/19at 02:16; Start 07/20/19 at 13:30; Stop 07/22/19 at 10:15; Status DC Vancomycin HCl (Vancomycin Trough Level) 1 each 1X ONCE MC Last administered on 07/21/19at 12:41; Start 07/21/19 at 13:00; Stop 07/21/19 at 13:01; Status DC Atenolol (Tenormin) 25 mg BID PO Last administered on 07/23/19at 08:46; Start 07/20/19 at 09:00 Hydroxyzine HCl (Atarax) 25 mg PRN Q6HRS PRN PO ITCHING Last administered on 07/20/19at 04:26; Start 07/20/19 at 04:15 Iohexol (Omnipaque 300 Mg/ml) 75 ml 1X ONCE IV Last administered on 07/20/19at 08:15; Start 07/20/19 at 08:15; Stop 07/20/19 at 08:16; Status DC Info (CONTRAST GIVEN -- Rx MONITORING) 1 each PRN DAILY PRN MC SEE COMMENTS; Start 07/20/19 at 08:15; Stop 07/22/19 at 08:14; Status DC Lactobacillus Rhamnosus (Culturelle) 1 cap BID PO Last administered on 07/23/19at 08:46; Start 07/20/19 at 21:00 Oxycodone/ Acetaminophen (Percocet 5/325) 1 tab PRN Q4HRS PRN PO PAIN Last administered on 07/23/19at 08:52; Start 07/20/19 at 12:45 Ketorolac Tromethamine (Toradol 15mg Vial) 15 mg PRN Q6HRS PRN IVP PAIN MILD Last administered on 07/22/19at 02:16; Start 07/20/19 at 12:45; Stop 07/25/19 at 12:44 Potassium Chloride (Klor-Con) 40 meq 1X ONCE PO Last administered on 07/20/19at 12:51; Start 07/20/19 at 12:45; Stop 07/20/19 at 12:46; Status DC Ondansetron HCl (Zofran) 4 mg PRN Q6HRS PRN IVP NAUSEA/VOMITING; Start 07/21/19 at 08:15 Alprazolam (Xanax) 0.5 mg PRN Q8HRS PRN PO ANXIETY / AGITATION Last administered on 07/22/19at 20:54; Start 07/21/19 at 12:45 Vancomycin HCl (Vancomycin Trough Level) 1 each 1X ONCE MC ; Start 07/21/19 at 13:00; Stop 07/21/19 at 13:01; Status Cancel Vancomycin HCl (Vancomycin Trough Level) 1 each 1X ONCE MC ; Start 07/22/19 at 13:00; Stop 07/22/19 at 10:15; Status DC Docusate Sodium (Colace) 100 mg DAILY PO Last administered on 07/22/19at 09:37; Start 07/21/19 at 21:30 Polyethylene Glycol (miraLAX PACKET) 17 gm DAILY PO Last administered on 07/22/19at 09:38; Start 07/22/19 at 09:00 Magnesium Citrate (Citroma) 296 ml 1X ONCE PO Last administered on 07/21/19at 22:25; Start 07/21/19 at 21:30; Stop 07/21/19 at 21:31; Status DC Celecoxib (CeleBREX) 100 mg BID PO Last administered on 07/23/19 08:47; Start 07/22/19 at 09:00 Linezolid (Zyvox) 600 mg BID PO Last administered on 07/23/19 08:47; Start 07/22/19 at 11:00 Active Scripts Active Reported No Known Medications Prior To Admisstion (Info) Each 1 Each Vitals/I & O Vital Sign - Last 24 Hours 07/22/19 07/22/19 07/22/19 07/22/19 11:00 15:00 19:20 19:45 Temp 97.8 98.3 97.7 97.8 98.3 97.7 Pulse 65 57 75 Resp 16 16 18 B/P (MAP) 125/75 (92) 149/100 (116) 164/105 (124) Pulse Ox 92 99 95 O2 Delivery Room Air Room Air Room Air 07/22/19 07/22/19 07/22/19 07/22/19 20:54 20:55 22:00 23:08 Temp 97.8 97.8 Pulse 75 67 Resp 18 16 18 B/P (MAP) 164/105 128/76 (93) Pulse Ox 95 O2 Delivery Room Air Room Air Room Air 07/23/19 07/23/19 07/23/19 07/23/19 03:00 07:00 08:00 08:46 Temp 98.2 98.6 98.2 98.6 Pulse 63 63 63 Resp 18 18 B/P (MAP) 132/79 (96) 119/69 (86) 119/69 Pulse Ox 93 96 O2 Delivery Room Air Room Air Room Air 07/23/19 08:52 Pulse Ox 96 O2 Delivery Room Air Intake and Output 07/22/19 07/22/1907/23/19 15:00 23:00 07:00 Intake Total 600 ml 740 ml Balance 600 ml 740 ml MAUREEN AADMES MD Jul 23, 2019 09:53
--- NOTE | 2019-07-23 10:16 | NUR ---
SW following for discharge planning. Chart reviewed, discussed with RN. Pt is ready to discharge, needs assistance with Zyvox prescription. MYLES met with pt to advise of GoodRX coupons and finding nearby pharmacy, pt agreeable. MYLES contacted [facility] near pt's home, [facility] reported they do not have Zyvox in stock and the load test mechanic note said it is not available, and is on back order. MYLES contacted [facility] on [facility], who reported the same thing as [facility]. MYLES notified RN of this, ID may have to determine a different abx for pt. MYLES will continue to follow.
--- NOTE | 2019-07-23 11:00 | NUR ---
Wound Care: Dr. Vences present at bedside for sharp debridement of L buttock abscess. Topical lidocaine 2% applied to area. See PN for further details on procedure. Wound pictured and measured following debridement. Packed loosely with plain 1/4" gauze packing, covered with non-adherent foam dressing and secured with hydrocolloid. Boyfriend present at bedside to observe dressing change as he will be changing the dressing upon DC. Education provided regarding wound care. No concerns at this time. Pt to DC today
--- NOTE | 2019-07-23 11:09 | PDOC ---
Progress Note-Wound Care SUBJECTIVE Pt admitted with left buttock abscess. Improving with antibx. We are consulted to provide wound care. Ms. Dean is not diabetic. She smokes occassionally. OBJECTIVE Vital Signs Vital Signs Date Time Temp Pulse Resp B/P (MAP) Pulse Ox O2 Delivery O2 Flow Rate FiO2 07/22/19 07:00 98.2 79 16 140/88 (105) 97 Room Air 98.2 Vital Signs Date Time Temp Pulse Resp B/P (MAP) Pulse Ox O2 Delivery O2 Flow Rate FiO2 07/23/19 09:55 96 Room Air 07/23/19 08:46 63 119/69 07/23/19 07:00 98.6 18 98.6 Physical Exam: 29 yo female is awake, alert, in NAD. Left medial buttock has an open wound with a full thickness portion with slough covered wound base, and with a tunnelling portion that is just large enough to allow CTA probe to 1 cm deep. Periwound skin is normal without erythema, induration, undue warmth. ASSESSMENT Cutaneous abscess. Infection is improving with antibiotics. Packing will be required to allow closure from the base of the wound towards the skin surface. Problems: (1) Abscess WOUND Location of Modifier: Left Body Site: Buttocks Associated Signs/Symptoms: Pain, Drainage Drainage Amount: Moderate Drainage Description: Serosanguineous, [place] Wound Description: SQ Bone/Muscle/Tendon Exposed: No PLAN After obtaining informed consent and after anesthetizing with topical 2% lidocaine, I sharply debrided slough and fibrin from the wound bed and explored the tunnel which was free of obstruction or loculation. We packed with iodoform gauze. I explained the purpose of the packing to allow healing from the wound base. RN taught pt's SO to pack the wound with instructions to change every 3 days and/or prn. Pt will need to f/u with PCP or with us in the wound care clinic. BLANCA MC MD Jul 23, 2019 11:09
[2019-07-23] MEDS ORDERED: oxyCODONE/APAP 5/325 1 TAB TABLET PO ONE (11:15)
--- NOTE | 2019-07-23 11:40 | NUR ---
Pt left AMA after being told they needed to wait for Dr. Sue for discharge orders, stating they were told they could leave already. After being informed that leaving AMA might make her not qualify for the Zyvox assistance program and being told if she did not take the antibiotic her infection would get worse and become resistant, she said she would take care of it and her significant other was a nurse. Security notified and pt left unit without waiting for anyone to escort her.
--- NOTE | 2019-07-23 11:43 | NUR ---
MYLES following. SW began process of Zyvox Assistance Program ([phone], fax: [phone]) for pt to receive Zyvox free. Pt needed to provide household income, for SW to complete the referral. Pt decided to leave AMA before SW was able to contact Zyvox assistance program to provide house hold income. MYLES advised pt of the possibility the Zyvox assistance program may not be able to accept if pt left AMA. Pt stated she need to leave and it didn't matter. Dr. De Oliveira was contacted to determine if SW should continue with the referral, Alvino requested this be done if the assistance program will allow. MYLES contacted the Zyvox assistance program to provide household income and determine if pt has been accepted. Zyvox assistance program will send an approval or denial fax when decision has been made. MYLES will continue to follow. RN notified.
--- NOTE | 2019-07-23 13:08 | PDOC3 ---
Discharge Summary Date of Admission: Jul 20, 2019 Date of Discharge: Jul 23, 2019 Follow-Up: 3-5 days Admitting Diagnosis comment: discharge dx dx by dr mcguire Cutaneous abscess. Infection is improving with antibiotics. Packing will be required to allow closure from the base of the wound towards the skin surface. Problems: (1) Abscess WOUND Location of Modifier: Left Body Site: Buttocks Associated Signs/Symptoms: Pain, Drainage Drainage Amount: Moderate Drainage Description: Serosanguineous, [place] Wound Description: SQ Bone/Muscle/Tendon Exposed: No PLAN After obtaining informed consent and after anesthetizing with topical 2% lidocaine, I sharply debrided slough and fibrin from the wound bed and explored the tunnel which was free of obstruction or loculation. We packed with iodoform gauze. I explained the purpose of the packing to allow healing from the wound base. RN taught pt's SO to pack the wound with instructions to change every 3 days and/or prn. Pt will need to f/u with PCP or with us in the wound care clinic. Surgical Debridement #1 Surgical Debridement #1 BLANCA MC MD Jul 23, 2019 11:09 FINAL DIAGNOSIS Problems Medical Problems: (1) Abscess Status: Acute (2) Cellulitis Status: Acute Brief Hospital Course Ms. Dean is a 29 old [sex] who presented with [abscess ] CONDITION AT DISCHARGE: Improved Discharge Medications Current Medications Sodium Chloride 1,000 ml @ 1,000 mls/hr 1X ONCE IV Last administered on 07/20/19at 00:51; Start 07/20/19 at 00:30; Stop 07/20/19 at 01:29; Status DC Fentanyl Citrate (Fentanyl 2ml Vial) 50 mcg 1X ONCE IVP Last administered on 07/20/19at 00:53; Start 07/20/19 at 00:45; Stop 07/20/19 at 00:46; Status DC Vancomycin HCl (Vanco Per Pharmacy) 1 each PRN DAILY PRN MC SEE COMMENTS Last administered on 07/21/19at 13:40; Start 07/20/19 at 00:30; Stop 07/22/19 at 10:15; Status DC Vancomycin HCl 2 gm/Sodium Chloride 500 ml @ 250 mls/hr 1X ONCE IV Last administered on 07/20/19at 01:12; Start 07/20/19 at 01:00; Stop 07/20/19 at 02:59; Status DC Ondansetron HCl (Zofran) 4 mg PRN Q8HRS PRN IV NAUSEA/VOMITING Last administered on 07/20/19 02:44; Start 07/20/19 at 01:15; Stop 07/21/19 at 01:14; Status DC Fentanyl Citrate (Fentanyl 2ml Vial) 50 mcg PRN Q1HR PRN IV PAIN Last administered on 07/20/19 22:33; Start 07/20/19 at 01:15; Stop 07/21/19 at 01:14; Status DC Acetaminophen (Tylenol) 650 mg PRN Q4HRS PRN PO FEVER; Start 07/20/19 at 01:15; Stop 07/21/19 at 01:14; Status DC Vancomycin HCl 1.5 gm/Sodium Chloride 500 ml @ 250 mls/hr Q12H IV Last administered on 07/22/19 02:16; Start 07/20/19 at 13:30; Stop 07/22/19 at 10:15; Status DC Vancomycin HCl (Vancomycin Trough Level) 1 each 1X ONCE MC Last administered on 07/21/19at 12:41; Start 07/21/19 at 13:00; Stop 07/21/19 at 13:01; Status DC Atenolol (Tenormin) 25 mg BID PO Last administered on 07/23/19 08:46; Start 07/20/19 at 09:00; Stop 07/23/19 at 12:24; Status DC Hydroxyzine HCl (Atarax) 25 mg PRN Q6HRS PRN PO ITCHING Last administered on 07/20/19at 04:26; Start 07/20/19 at 04:15; Stop 07/23/19 at 12:24; Status DC Iohexol (Omnipaque 300 Mg/ml) 75 ml 1X ONCE IV Last administered on 07/20/19at 08:15; Start 07/20/19 at 08:15; Stop 07/20/19 at 08:16; Status DC Info (CONTRAST GIVEN -- Rx MONITORING) 1 each PRN DAILY PRN MC SEE COMMENTS; Start 07/20/19 at 08:15; Stop 07/22/19 at 08:14; Status DC Lactobacillus Rhamnosus (Culturelle) 1 cap BID PO Last administered on 07/23/19at 08:46; Start 07/20/19 at 21:00; Stop 07/23/19 at 12:24; Status DC Oxycodone/ Acetaminophen (Percocet 5/325) 1 tab PRN Q4HRS PRN PO PAIN Last administered on 07/23/19at 08:52; Start 07/20/19 at 12:45; Stop 07/23/19 at 12:24; Status DC Ketorolac Tromethamine (Toradol 15mg Vial) 15 mg PRN Q6HRS PRN IVP PAIN MILD Last administered on 07/22/19at 02:16; Start 07/20/19 at 12:45; Stop 07/23/19 at 12:24; Status DC Potassium Chloride (Klor-Con) 40 meq 1X ONCE PO Last administered on 07/20/19at 12:51; Start 07/20/19 at 12:45; Stop 07/20/19 at 12:46; Status DC Ondansetron HCl (Zofran) 4 mg PRN Q6HRS PRN IVP NAUSEA/VOMITING; Start 07/21/19 at 08:15; Stop 07/23/19 at 12:24; Status DC Alprazolam (Xanax) 0.5 mg PRN Q8HRS PRN PO ANXIETY / AGITATION Last administered on 07/22/19at 20:54; Start 07/21/19 at 12:45; Stop 07/23/19 at 12:24; Status DC Vancomycin HCl (Vancomycin Trough Level) 1 each 1X ONCE MC ; Start 07/21/19 at 13:00; Stop 07/21/19 at 13:01; Status Cancel Vancomycin HCl (Vancomycin Trough Level) 1 each 1X ONCE MC ; Start 07/22/19 at 13:00; Stop 07/22/19 at 10:15; Status DC Docusate Sodium (Colace) 100 mg DAILY PO Last administered on 07/22/19at 09:37; Start 07/21/19 at 21:30; Stop 07/23/19 at 12:24; Status DC Polyethylene Glycol (miraLAX PACKET) 17 gm DAILY PO Last administered on 07/22/19at 09:38; Start 07/22/19 at 09:00; Stop 07/23/19 at 12:24; Status DC Magnesium Citrate (Citroma) 296 ml 1X ONCE PO Last administered on 07/21/19at 22:25; Start 07/21/19 at 21:30; Stop 07/21/19 at 21:31; Status DC Celecoxib (CeleBREX) 100 mg BID PO Last administered on 07/23/19at 08:47; Start 07/22/19 at 09:00; Stop 07/23/19 at 12:24; Status DC Linezolid (Zyvox) 600 mg BID PO Last administered on 07/23/19 08:47; Start 07/22/19 at 11:00; Stop 07/23/19 at 12:24; Status DC Oxycodone/ Acetaminophen (Percocet 5/325) 1 tab 1X ONCE PO Last administered on 07/23/19at 11:26; Start 07/23/19 at 11:15; Stop 07/23/19 at 11:17; Status DC Active Scripts Active Reported No Known Medications Prior To Admisstion (Info) Each 1 Each Vital Signs Vital Signs Date Time Temp Pulse Resp B/P (MAP) Pulse Ox O2 Delivery O2 Flow Rate FiO2 07/23/19 11:26 96 Room Air 07/23/19 08:46 63 119/69 07/23/19 07:00 98.6 18 98.6 Allergies Allergies Coded Allergies Type Severity Reaction Last Updated Verified morphine Adverse Reaction Unknown "made me freak out" 07/20/19 Yes Disposition/Orders: D/C to Home MAUREEN ADAMES MD Jul 23, 2019 13:08
== END 2019-07-23 11:45 | disposition left against medical advice (07) | DRG 581 ==
LOC: ER 00:06 → 2 NORTH 00:51 → 4 NORTH 14:55
PROVIDERS: ADMIT Family Medicine; ATTEND Family Medicine
PROC: 0JD90ZZ Extraction of Buttock Subcutaneous Tissue and Fascia, Open Approach (ICD-10-PCS; principal; 2019-07-23)
DX: L02.31 Cutaneous abscess of buttock (principal); I10 Essential (primary) hypertension; L03.317 Cellulitis of buttock; F12.90 Cannabis use, unspecified, uncomplicated; E66.9 Obesity, unspecified; F19.10 Other psychoactive substance abuse, uncomplicated; F17.200 Nicotine dependence, unspecified, uncomplicated; Z88.5 Allergy status to narcotic agent; Z85.41 Personal history of malignant neoplasm of cervix uteri; Z68.35 Body mass index [BMI] 35.0-35.9, adult
CPT/HCPCS: 36415; 72193; 80048; 80053; 80202; 80307; 81025; 83605; 85025; 86592; 86703; 86704; 86709; 86803; 87040; 96365; 96375; J1885; J2405; J3010; J3370; J7030; J7040; Q9967; 99285-25; G0378